=== PATIENT | male | born 1950 | race Caucasian/White ===

== ENCOUNTER 2017-05-27 11:04 | Emergency (ER) | payer BC ==
[2017-05-27] MEDS ORDERED: KETOROLAC 60 MG/2 ML VIAL IM STA (11:47)
--- NOTE | 2017-05-27 11:52 | ED ---
Back Pain HPI - General Chief Complaint: Back Pain/Injury Stated Complaint: Knee Pain Time Seen by Provider: 05/27/17 11:30 Source: patient, EMS, RN notes reviewed Limitations: no limitations - History of Present Illness Initial Comments: This is a 66-year-old male who states about 2 weeks ago his dog ran between his legs and caused him to slip he fell on a wooden swing which broke up. She's been having some low back and mid back pain since that time but he states now has some numbness to his feet and pain radiating down his legs especially on the left. He denies any overt urinary or fecal incontinence any overt loss of function to his upper or lower extremities. He states he does have left knee problems and was advised that he may need a knee replacement. He voices no other complaints at this time. He does state the pain is about 8/10 in severity. Sharp in nature MD Complaint: back pain, fall - Related Data Home Medications Medication Instructions Recorded Confirmed Levothyroxine Sodium [Synthroid] 75 mcg PO DAILY 09/29/13 05/27/17 Pravastatin Sodium [Pravachol] 40 mg PO DAILY 09/29/13 05/27/17 Allopurinol [Zyloprim] 300 mg PO DAILY 10/04/13 05/27/17 Furosemide [Lasix] 40 mg PO DAILY 05/27/17 05/27/17 Losartan/Hydrochlorothiazide 1 tab PO DAILY 05/27/17 05/27/17 [Losartan-Hctz 100-25 mg Tab] Metoprolol Succinate (ER) [Toprol 50 mg PO DAILY 05/27/17 05/27/17 Xl] amLODIPine [Norvasc] 10 mg PO DAILY 05/27/17 05/27/17 Previous Rx's Medication Instructions Recorded Cyclobenzaprine [Flexeril] 10 mg PO TID #14 tab 05/27/17 Ibuprofen 800 mg PO Q6HR PRN #20 tablet 05/27/17 Allergies Allergy/AdvReac Type Severity Reaction Status Date / Time No Known Allergies Allergy Verified 10/04/13 16:21 Review of Systems ROS Statement: Those systems with pertinent positive or pertinent negative responses have been documented in the HPI. ROS Other: All systems not noted in ROS Statement are negative. Past Medical History Past Medical History: Diabetes Mellitus, Hyperlipidemia, Hypertension, Thyroid Disorder Additional Past Medical History / Comment(s): gout History of Any Multi-Drug Resistant Organisms: None Reported Past Surgical History: No Surgical Hx Reported Additional Past Surgical History / Comment(s): REMOVAL MEGAN CATARACTS Past Anesthesia/Blood Transfusion Reactions: No Reported Reaction Past Psychological History: No Psychological Hx Reported Smoking Status: Never smoker Past Alcohol Use History: Occasional Past Drug Use History: None Reported General Exam - General Exam Comments Initial Comments: This is a well-developed well-nourished awake alert oriented times 3 male Limitations: no limitations General appearance: alert Head exam: Present: atraumatic, normocephalic, normal inspection Eye exam: Present: normal appearance, PERRL, EOMI. Absent: scleral icterus, conjunctival injection, periorbital swelling ENT exam: Present: normal exam, mucous membranes moist Neck exam: Present: normal inspection. Absent: tenderness, meningismus, lymphadenopathy Respiratory exam: Present: normal lung sounds bilaterally. Absent: respiratory distress, wheezes, rales, rhonchi, stridor Cardiovascular Exam: Present: regular rate, normal rhythm, normal heart sounds. Absent: systolic murmur, diastolic murmur, rubs, gallop, clicks GI/Abdominal exam: Present: soft, normal bowel sounds, other (Obese abdomen). Absent: distended, tenderness, guarding, rebound, rigid Rectal exam: Present: deferred Extremities exam: Present: normal inspection, full ROM, normal capillary refill , other (Very mild decreased sensation to touch bilaterally). Absent: tenderness, pedal edema, joint swelling, calf tenderness Back exam: Present: normal inspection, tenderness, paraspinal tenderness, vertebral tenderness. Absent: full ROM, CVA tenderness (R), CVA tenderness (L) , rash noted (Tennis palpation of the mid to lower thoracic paraspinous muscles and spinous processes as well as over the mid to lower lumbar spinous processes and paraspinous muscles. No definite step-off or crepitation. Tenderness palpation over the gluteal muscles is minimal.) Neurological exam: Present: alert, oriented X3, CN II-XII intact, reflexes normal Psychiatric exam: Present: normal affect, normal mood Skin exam: Present: warm, dry, intact, normal color. Absent: rash Course Vital Signs 05/27/17 11:06 Temperature 98 F Pulse Rate 74 Respiratory 16 Rate Blood Pressure 167/83 O2 Sat by Pulse 99 Oximetry Medical Decision Making - Medical Decision Making I did discuss findings with the patient and family members were present. Patient be discharged placed on anti-inflammatories he is referred to orthopedics for evaluation of his back he is return when necessary - Radiology Data Radiology results: report reviewed (CT was reviewed and results reviewed. Thoracic spine reveals degenerative disc disease and spondylosis. No compression fracture noted no central stenosis. Lumbar spine CT no evidence of fracture left paracentral disc herniation at L4 and 5 resulting in central stenosis and left lateral recess stenosis. Also difficulty with borderline to mild central stenosis at L3 4.), image reviewed Disposition Clinical Impression: Mechanical back pain, Thoracic back pain, Degeneration of intervertebral disc, Lumbar radiculopathy Disposition: HOME SELF-CARE Condition: Good Instructions: Acute Low Back Pain (ED), Degenerative Disc Disease (ED) Prescriptions: Cyclobenzaprine [Flexeril] 10 mg PO TID #14 tab Ibuprofen 800 mg PO Q6HR PRN #20 tablet PRN Reason: Pain Referrals: Mikal Box MD [Primary Care Provider] - 1-2 days Cris Donnelly DO [Doctor of Osteopathic Medicine] - 1-2 days
--- NOTE | 2017-05-27 12:46 | CT ---
EXAMINATION TYPE: CT lumbar spine wo con DATE OF EXAM: 05/27/2017 COMPARISON: NONE HISTORY: Patient fell through wooden and landed on bottom, [address] DLP: 1943.[address] of the lumbar spine was performed. Bone and soft tissue window settings are submitted as well as coronal and sagittal reconstructions. Spinal canal is congenitally diminutive in size. L1-L2: Normal disc space height. No disc herniation protrusion or central stenosis. No facet joint arthropathy. No evidence for foraminal encroachment. L2-L3: Normal disc space height. No disc herniation protrusion or central stenosis. No facet joint arthropathy. No evidence for foraminal encroachment. L3-L4: Mild degenerative disc space narrowing. Circumferential disc bulge effaces the ventral thecal sac. Mild central stenosis suggested. L4-L5: Left paracentral disc herniation resulting in left lateral recess stenosis and central stenosi s. Left foraminal encroachment identified. L5-S1: Normal disc space height. No disc herniation protrusion or central stenosis. No facet joint arthropathy. No evidence for foraminal encroachment. No paraspinal masses are identified. Lumbar segments are free if fracture. Atrophic changes left kid linda. IMPRESSION: 1. No evidence for fracture. 2. Left paracentral disc herniation at L4-5 resulting in central stenosis and left lateral recess milly nosis. 3. Disc bulging with borderline to mild central stenosis at L3-4.
--- NOTE | 2017-05-27 12:49 | CT ---
EXAMINATION TYPE: CT thoracic spine wo con DATE OF EXAM: 05/27/2017 COMPARISON: NONE HISTORY: Patient fell through wooden and landed on bottom, [address] DLP: 1353.6 mGycm Automated exposure control for dose reduction was used. The unenhanced CT of the thoracic spine was performed with bone and soft tissue window settings submi tted. There is no evidence for thoracic spine compression fracture. There is evidence of ventral spondylosi s throughout. Moderate degenerative disc space narrowing is noted throughout without evidence for andres tral stenosis or disc herniation. No bony destructive process is seen. No paraspinal masses evident. Incidentally there is evidence of cardiomegaly and coronary artery calcifications. IMPRESSION: DEGENERATIVE DISC DISEASE AND SPONDYLOSIS. NO COMPRESSION FRACTURE OF THE THORACIC SPINE OR CENTRAL S TENOSIS.
--- NOTE | 2017-05-27 12:51 | CT ---
EXAMINATION TYPE: CT pelvis wo con DATE OF EXAM: 05/27/2017 COMPARISON: NONE HISTORY: Patient fell through wooden and landed on bottom, [address] DLP: 1226.9 mGycm Automated exposure control for dose reduction was used. Unenhanced CT of the pelvis was performed wit h bone and soft tissue window settings submitted. FINDINGS: No evidence for fracture or dislocation. Mild degenerative hip narrowing. No evidence for soft tissu e mass. Small fat-containing right inguinal hernia. No unusual collections or masses. IMPRESSION: NO PELVIC FRACTURES SEEN.
[2017-05-28 23:01] VITALS: BP 165/80; PULSE 72; RESP 16; TEMP 98
== END 2017-05-27 13:24 | disposition home or self-care (01) ==
LOC: EC 11:04
DX: M51.34 Other intervertebral disc degeneration, thoracic region (principal); M47.814 Spondylosis without myelopathy or radiculopathy, thoracic region; M51.16 Intervertebral disc disorders with radiculopathy, lumbar region; M48.061 Spinal stenosis, lumbar region without neurogenic claudication; E78.5 Hyperlipidemia, unspecified; I10 Essential (primary) hypertension; M10.9 Gout, unspecified; E07.9 Disorder of thyroid, unspecified; Z79.899 Other long term (current) drug therapy
CPT/HCPCS: 72192; 72128; 72131; 99284; 96372; J1885

== ENCOUNTER 2017-11-02 11:40 | Emergency (ER) | payer BC ==
[2017-11-02] MEDS ORDERED: DIPH,PERTUS(ACELL)TETVAC-LF 0.5 ML VIAL IM ONE (12:43)
[2017-11-02] MEDS ORDERED: hydrALAZINE HCL 20 MG/ML 1 ML VIAL IM STA (13:13)
[2017-11-02] MEDS ORDERED: METOPROLOL TARTRATE 50 MG TAB PO STA (13:13)
[2017-11-02] MEDS ORDERED: HYDROcodone/APAP 10-325MG 1 EACH TAB PO ONE (13:13)
--- NOTE | 2017-11-02 13:23 | CT ---
EXAMINATION TYPE: CT brain cspine wo con DATE OF EXAM: 11/02/2017 COMPARISON: NONE HISTORY: Fall 1 week ago. Facial and frontal bruising CT DLP: 1831.4 mGycm Automated exposure control for dose reduction was used. TECHNIQUE: CT scan of the head and cervical spine are performed without contrast. FINDINGS: Nasal septal deviation noted. Soft tissue hematoma overlying the frontal bone mild genera lized degenerative change. Faint low-attenuation within the white matter is nonspecific but suggestiv e of remote microvascular. Calvarium intact.. There is a 1 cm soft tissue protuberance extending off the posterior nasopharynx. Recommend ENT consu ltation. Mass not excluded. Multilevel degenerative disc disease and facet arthropathy with posterior spondylosis. There is multi level foraminal encroachment extending from level C3-T1. No compression deformities. Suspect canal st enosis at C5-C6 and C4-C5. Could not exclude disc herniations due to the limitations exam. Central st enosis at C6-C7 also suspected atherosclerotic change of the carotid systems is noted. Tip of odontoi d demonstrate a corticated density which appears chronic. May be related to previous trauma or post a rthropathy. IMPRESSION: 1. There is no acute fracture or dislocation evident in the cervical spine. 2. No acute intracranial hemorrhage, mass effect, or midline shift is seen. There is evidence of a anderson bcutaneous soft tissue hematoma overlying the frontal bone. 3. Multilevel degenerative disc disease with suspected multilevel canal stenosis. Recommend follow-up MRI. 4. Within the posterior nasopharynx there is a soft tissue nodule measuring 1 cm correlate for mucosa l lesion.
--- NOTE | 2017-11-02 13:36 | XR ---
EXAMINATION TYPE: XR shoulder complete LT DATE OF EXAM: 11/02/2017 COMPARISON: NONE HISTORY: Pain TECHNIQUE: Three views are submitted. FINDINGS: The osseous structures are intact. There is no acute fracture or dislocation. Arthropathy of the AC joint. IMPRESSION: 1. No acute process.
[2017-11-02 14:00] VITALS: RESP 18
[2017-11-02] MEDS ORDERED: amLODIPine 10 MG TAB PO STA (14:08)
--- NOTE | 2017-11-02 15:30 | ED ---
Fall HPI - General Chief Complaint: Fall Stated Complaint: Fall Time Seen by Provider: 11/02/17 12:21 Source: patient Mode of arrival: wheelchair - History of Present Illness Initial Comments: 67 years old male fell 6 days ago he bumped his head against a hard surface no complaining about 10 headache and neck pain he is complaining about numbness in his both arms, his strength in his both arms is fine also complaining about the left shoulder pain and range of motion is compromised and now he stated that he is having a hard time raising the left arm above his head. Denies any neck stiffness no chest pain or shortness of breath no abdominal pain no symptoms of TIA or CVA - Related Data Home Medications Medication Instructions Recorded Confirmed Levothyroxine Sodium [Synthroid] 75 mcg PO DAILY 09/29/13 11/02/17 Pravastatin Sodium [Pravachol] 40 mg PO DAILY 09/29/13 11/02/17 Allopurinol [Zyloprim] 300 mg PO DAILY 10/04/13 11/02/17 Aspirin 81 mg PO DAILY 05/27/17 11/02/17 Furosemide [Lasix] 40 mg PO DAILY 05/27/17 11/02/17 Losartan/Hydrochlorothiazide 1 tab PO DAILY 05/27/17 11/02/17 [Losartan-Hctz 100-25 mg Tab] Metoprolol Succinate (ER) [Toprol 50 mg PO DAILY 05/27/17 11/02/17 Xl] amLODIPine [Norvasc] 10 mg PO DAILY 05/27/17 11/02/17 Ibuprofen 800 mg PO TID PRN 11/02/17 11/02/17 Potassium Chloride [Klor-Con 20] 20 meq PO DAILY 11/02/17 11/02/17 Previous Rx's Medication Instructions Recorded Gabapentin [Neurontin] 100 mg PO DAILY #30 capsule 11/02/17 Allergies Allergy/AdvReac Type Severity Reaction Status Date / Time No Known Allergies Allergy Verified 11/02/17 12:10 Review of Systems ROS Statement: Those systems with pertinent positive or pertinent negative responses have been documented in the HPI. ROS Other: All systems not noted in ROS Statement are negative. Past Medical History Past Medical History: Diabetes Mellitus, Hyperlipidemia, Hypertension, Thyroid Disorder Additional Past Medical History / Comment(s): gout History of Any Multi-Drug Resistant Organisms: None Reported Past Surgical History: No Surgical Hx Reported Additional Past Surgical History / Comment(s): REMOVAL MEGAN CATARACTS Past Anesthesia/Blood Transfusion Reactions: No Reported Reaction Past Psychological History: No Psychological Hx Reported Past Alcohol Use History: None Reported General Exam Limitations: no limitations Course Vital Signs 11/02/17 11/02/17 11/02/17 11:44 12:54 13:59 Temperature 98.3 F Pulse Rate 79 77 Respiratory 22 18 Rate Blood Pressure 181/102 195/91 Blood Pressure 204/99 [Left Arm Sitting] Blood Pressure 203/112 [Left Arm Standing] Blood Pressure 207/95 [Left Arm Supine] O2 Sat by Pulse 97 100 Oximetry 11/02/17 14:31 Temperature Pulse Rate 69 Respiratory 18 Rate Blood Pressure 180/86 Blood Pressure [Left Arm Sitting] Blood Pressure [Left Arm Standing] Blood Pressure [Left Arm Supine] O2 Sat by Pulse 99 Oximetry Critical Care Time Total Critical Care Time: 30 Critical Care Time: Patient came in is that pressure was it was 70 systolic he hasn't had his blood pressure medications for last 2-3 days we gave him on Norvasc 10 mg which is his home medication we also had a beta blockers 50 mg by mouth and then gave him a hydralazine 20 mg intramuscular and we watched him for about an hour his blood pressure is 170 systolic now. He is advised to follow-up with his family doctor about blood pressure is advised to keep a log for blood pressure once a day for the next 10 days he agrees with the period as far as numbness in his both hands concern I believe this is from spinal stenosis of the cervical spine I am going to start him on a gabapentin 100 mg by mouth daily at bedtime which should be increased by the primary care doctor over the weeks to maybe 300 mg 3 times a day Disposition Clinical Impression: Head injury, Radiculopathy Disposition: HOME SELF-CARE Condition: Good Instructions: Fall Prevention for Older Adults (ED) Prescriptions: Gabapentin [Neurontin] 100 mg PO DAILY #30 capsule Is patient prescribed a controlled substance at d/c from ED?: No Referrals: Mikal Box MD [Primary Care Provider] - 1-2 days
[2017-11-02 15:58] VITALS: BP 187/91; PULSE 62; TEMP 98.6
== END 2017-11-02 15:58 | disposition home or self-care (01) ==
LOC: EC 11:40
DX: S09.90XA Unspecified injury of head, initial encounter (principal); M54.10 Radiculopathy, site unspecified; I10 Essential (primary) hypertension; E78.5 Hyperlipidemia, unspecified; E07.9 Disorder of thyroid, unspecified; M10.9 Gout, unspecified; Z79.82 Long term (current) use of aspirin; Z79.899 Other long term (current) drug therapy; Z23 Encounter for immunization; W22.8XXA Striking against or struck by other objects, initial encounter; Y92.009 Unspecified place in unspecified non-institutional (private) residence as the place of occurrence of the external cause
CPT/HCPCS: 99284; 96372; 90471; 73030; 72125; 70450; 90715; J0360

== ENCOUNTER → 2017-12-02 | Outpatient (CLI) | payer MEDICARE, BC | END | disposition home or self-care (01) | LOC: RADMRIMAIN 12:35 | PROVIDERS: ATTEND Physical Medicine & Rehabilitation | DX: Z53.9 Procedure and treatment not carried out, unspecified reason (principal) ==

== ENCOUNTER 2018-08-24 15:13 | Inpatient (IN) | payer BC, MEDICARE ==
[2018-08-24] MEDS ORDERED: HYDROcodone/APAP 7.5-325MG 1 EACH TAB PO ONE (15:31)
--- NOTE | 2018-08-24 16:10 | XR ---
Right foot, right ankle, right knee HISTORY: Pain and swelling, trauma and pain 3 views of the right foot, 3 views of the right ankle, 3 views of the right knee submitted. There is a fracture dislocation at the ankle, bayonet apposition present at the distal fibular fractu re which is displaced laterally. Ankle is dislocated laterally approximately 2.4 cm. Small ossific fr agments are present laterally compatible with comminution. Plantar calcaneal spur noted incidentally. There is soft tissue swelling. Enthesophyte present at the insertion of the Achilles tendon. Degenerative changes are present at the first metatarsal nodule laurita int. Degenerative changes are present at the intertarsal joints. Knee joint shows normal alignment an d bone mineralization. There is marginal spurring in the medial compartment with joint space loss com patible with osteoarthritic change. IMPRESSION: Ankle fracture dislocation as described.
--- NOTE | 2018-08-24 16:38 | ED ---
Lower Extremity Injury HPI - General Chief Complaint: Extremity Injury, Lower Stated Complaint: Ankle pain/fall Time Seen by Provider: 08/24/18 15:22 Source: patient, EMS Mode of arrival: EMS Limitations: no limitations - History of Present Illness Initial Comments: The 67-year-old male with past medical history of hypertension, gout and chronic back pain presenting today for chief complaint of right ankle pain and inability to weight-bear. Patient states on Friday of last week he fell twisting his ankle inward. He states he thought he had a sprain, he states immediately after he had pain with weightbearing, he states that the days progressed it improved, he states he was using his walker which uses for chronic back pain at times, then he began using a cane, he states for the past 2 days has been ambulatory without difficulty only mild discomfort. However today when he went to let the dog out he noticed a pop in his right ankle and felt as though gave out, he states he was not able to weight-bear secondary to the pain. Patient denies f all that time. He states he sat down, EMS was called due to inability to weight-bear and he is brought to the emergency department for evaluation. Patient states the ankle has been bruised for the past week has had soft tissue swelling. Denies any numbness tingling or loss sensation coolness or pallor of the extremity. Patient states he had mild pain at the knee this began last Friday however has been improving over the course of the week. Remaining review of systems negative patient denies head injury loss of consciousness, abdominal trauma, back pain, fever, chills, shortness of breath, chest pain, abdominal pain, nausea or vomiting, numbness or tingling, dysuria or hematuria, constipation or diarrhea, headaches or visual changes, or any other complaints. - Related Data Home Medications Medication Instructions Recorded Confirmed Levothyroxine Sodium [Synthroid] 75 mcg PO DAILY 09/29/13 08/24/18 Pravastatin Sodium [Pravachol] 40 mg PO DAILY 09/29/13 08/24/18 Allopurinol [Zyloprim] 300 mg PO DAILY 10/04/13 08/24/18 Losartan/Hydrochlorothiazide 1 tab PO DAILY 05/27/17 08/24/18 [Losartan-Hctz 100-25 mg Tab] Metoprolol Succinate (ER) [Toprol 50 mg PO DAILY 05/27/17 08/24/18 Xl] amLODIPine [Norvasc] 10 mg PO DAILY 05/27/17 08/24/18 amLODIPine [Norvasc] 5 mg PO DAILY 08/24/18 08/24/18 Allergies Allergy/AdvReac Type Severity Reaction Status Date / Time No Known Allergies Allergy Verified 08/24/18 15:39 Review of Systems ROS Statement: Those systems with pertinent positive or pertinent negative responses have been documented in the HPI. ROS Other: All systems not noted in ROS Statement are negative. Past Medical History Past Medical History: Diabetes Mellitus, Hyperlipidemia, Hypertension, Thyroid Disorder Additional Past Medical History / Comment(s): gout, back problems History of Any Multi-Drug Resistant Organisms: None Reported Past Surgical History: No Surgical Hx Reported Additional Past Surgical History / Comment(s): REMOVAL MEGAN CATARACTS Past Anesthesia/Blood Transfusion Reactions: No Reported Reaction Past Psychological History: No Psychological Hx Reported Smoking Status: Current some day smoker Past Alcohol Use History: None Reported Past Drug Use History: None Reported General Exam - General Exam Comments Initial Comments: General: The patient is awake and alert, in no distress, and does not appear acutely ill. Morbidly obese Eye: +3 mm pupils are equal, round and reactive to light, extra-ocular movements are intact. No nystagmus. There is normal conjunctiva bilaterally. No signs of icterus. Ears, nose, mouth and throat: There are moist mucous membranes and no oral lesions. No raccoon or Duggan sign. Neck: The neck is supple, there is no tenderness or JVD. Cardiovascular: There is a regular rate and rhythm. No murmur, rub or gallop is appreciated. Respiratory: Lungs are clear to auscultation, respirations are non-labored, breath sounds are equal. No wheezes, stridor, rales, or rhonchi. Gastrointestinal: Soft, non-distended, non-tender abdomen without masses or organomegaly noted. There is no rebound or guarding present. No CVA tenderness. Bowel sounds are unremarkable. Musculoskeletal: Upon inspection of the right ankle there is gross deformity. There is ecchymosis noted and soft tissue swelling this appears moderate in comparison with the left ankle. Patient is unable to range secondary to pain and gross deformity. Patient denies any loss of sensation distal or proximal to injury site. Patient has mild tenderness to patient of the right anterior knee. Normal ROM, no tenderness of the left LE. Strength 5/5 at knees b/l, extensor mechanism intact. Sensation intact of the of the LE b/l inclding proximal and distal to affected extremity . DP pulses equal bilaterally strong 2+. Neurological: A&O x 3. CN II-XII intact, There are no obvious motor or sensory deficits. Coordination appears grossly intact. Speech is normal. Skin: Skin is warm and dry and no rashes or lesions are noted. Psychiatric: Cooperative, appropriate mood & affect, normal judgment. Limitations: no limitations Course Vital Signs 08/24/18 08/24/18 08/24/18 15:15 17:07 17:11 Temperature 97.4 F L Pulse Rate 76 78 67 Respiratory 18 20 20 Rate Blood Pressure 189/97 191/106 172/71 O2 Sat by Pulse 99 100 100 Oximetry 08/24/18 08/24/18 08/24/18 17:16 17:21 20:09 Temperature Pulse Rate 68 69 73 Respiratory 20 20 18 Rate Blood Pressure 135/69 146/90 180/91 O2 Sat by Pulse 100 100 98 Oximetry - Reevaluation(s) Reevaluation #1: Spoke with Physician Physical Ther Ken Ramirez about case, she reviewed imaging studies, we discussed history. She spoke with attending Dr Lobo who recommend reduction/splint. He is agreeable with admission for subacute placement until surgical intervention. 08/24/18 16:40 Reevaluation #2: Pt states he can not pee in urinal, or weight bear in right or left leg. Requesting catherization to prevent incontinence. Mendes placed. Medical Decision Making - Medical Decision Making 67-year-old male presented for right ankle deformity and inability to weight- bear. Patient fell last week twisting right ankle. Patient states today after being able to weight-bear for the past week he noted a loud pop, pain in the right ankle and inability to weight-bear. At this time patient called EMS. X-rays revealed a fibula fracture 100% displaced medially with dislocation of the ankle mortise. No obvious osseous injury of the medial malleolus or posteriorly. Patient neurovascularly intact. Conscious sedation was performed by Dr. Carroll attending provider. He reviewed imaging studies. Patient t olerated procedure well, procedures performed using propofol after written consent. Repeat neurovascular exam after reduction and splint placement was within normal limits. Ortho consulted who reviewed imaging studies, recommend reduction/splint. Pt states he has significant left arthritis and with the right ankle fracture and would not be able to ambulate. At this time Dr. Medina accepted admission for social work consult/rehab placement until operative measures performed. 1st set post reduction films revealed reduction, second set after splint was in place, revealed dislocation and displacement. Pt NV intact, repeat reduction performed. Dr. Medina was paged for the second time, he came to patient bedside and reduced ankle and placed in bulky doran. Pt NV intact after splinting transferred to floor in stable condition. Dr. Rosado presented at bedside for medical clearance. - Lab Data Result diagrams: 08/24/18 19:50 08/24/18 19:50 - EKG Data EKG Comments: Ventricular rate 70 bpm, IA interval 170 Sy, to administration needs six- month second, QT/QTc 528/570 no seconds. Sinus rhythm with occasional PVC. Nonspecific T-wave. No ST elevation or depression. Disposition Clinical Impression: Inability to bear weight, Right fibular fracture, Dislocation of ankle, right, closed, History of fall Disposition: ADMITTED IP TO THIS HOSP Condition: Stable Is patient prescribed a controlled substance at d/c from ED?: No Time of Disposition: 17:33 Decision to Admit Reason: Admit from EC Decision Date: 08/24/18 Decision Time: 17:33
[2018-08-24] MEDS ORDERED: PROPOFOL 10 MG/ML 20 ML VIAL IV ONE (16:42)
[2018-08-24] MEDS ORDERED: NALOXONE 0.4 MG/ML 1 ML VIAL IV PRN (17:33)
--- NOTE | 2018-08-24 17:43 | XR ---
EXAMINATION TYPE: XR ankle limited RT DATE OF EXAM: 08/24/2018 CLINICAL HISTORY: Right ankle fracture. TECHNIQUE: Single frontal view of the right ankle is obtained. COMPARISON: Right ankle x-ray earlier today. FINDINGS: There is interval improvement in alignment after reduction with slight lateral tilting of the ankle mortise and medial space widening. There is interval improvement in comminuted fracture thr ough the lateral malleolus is still slight lateral step-off measured 6 to 7 mm. Moderate diffuse subc utaneous edema soft tissue swelling medially and laterally remains present. IMPRESSION: There is improved alignment on frontal view after reduction.
[2018-08-24] MEDS ORDERED: SODIUM CHLORIDE 0.9% 1,000 ML IV SCH (17:45)
--- NOTE | 2018-08-24 18:32 | XR ---
EXAMINATION TYPE: XR ankle limited RT DATE OF EXAM: 08/24/2018 CLINICAL HISTORY: Post reduction and splinting. TECHNIQUE: Frontal and lateral images of the right ankle are obtained. COMPARISON: Right ankle x-rays earlier today.. FINDINGS: There is interval placement of splint cast material which is noted low radiographic sensit ivity. Comminuted displaced fracture through lateral malleolus shows increased lateral displacement a nd angulation. Posterior displacement is noted on lateral view. There is new lateral tilting and subl uxation of talus relative to distal tibia. IMPRESSION: There is worsening alignment after casting.
[2018-08-24] MEDS ORDERED: MORPHINE SULFATE 2 MG/ML SYRINGE IVP STA (19:04)
[2018-08-24] MEDS ORDERED: hydrALAZINE HCL 20 MG/ML 1 ML VIAL IVP PRN (19:45)
[2018-08-24] MEDS ORDERED: TEMAZEPAM 15 MG CAP PO PRN (19:46)
[2018-08-24] MEDS ORDERED: ACETAMINOPHEN TAB 500 MG TAB PO PRN (19:46)
[2018-08-24] MEDS ORDERED: ALPRAZolam 0.25 MG TAB PO PRN (19:46)
[2018-08-24 20:06] LABS: Basophils # (A) 0.1 k/uL (0-0.2); Basophils % (A) 1 %; Eosinophils # (A) 0.4 k/uL (0-0.7); Eosinophils % (A) 3 %; HCT 40.4 % (39.0-53.0); Lymphocytes # (A) 1.4 k/uL (1.0-4.8); Lymphocytes % (A) 11 %; MCH 32.9 pg (25.0-35.0); MCHC 34.6 g/dL (31.0-37.0); Mean Platelet Volume 6.8; Monocytes # (A) 0.8 k/uL (0-1.0); Monocytes % (A) 6 %; Neutrophils # (A) 9.9 k/uL (1.3-7.7); Neutrophils % (A) 78 %; Platelet Count 236 k/uL (150-450); RBC 4.25 m/uL (4.30-5.90); RDW 14.3 % (11.5-15.5); WBC 12.7 k/uL (3.8-10.6)
[2018-08-24] MEDS: SODIUM CHLORIDE 0.9% 1,000 ML IV SCH (20:08)
[2018-08-24 20:12] LABS: Albumin 3.8 g/dL (3.5-5.0); Calcium 9.5 mg/dL (8.4-10.2); Potassium 3.3 mmol/L (3.5-5.1); Total Bilirubin 1.6 mg/dL (0.2-1.3); Total Protein 6.5 g/dL (6.3-8.2)
[2018-08-24] MEDS ORDERED: LIDOCAINE 2% INJ 20 MG/ML (20 ML MDV) SQ STA (20:14)
[2018-08-24] MEDS ORDERED: POTASSIUM CHLORIDE ER 20 MEQ TAB.ER PO STA (20:37)
[2018-08-24] MEDS ORDERED: LORazepam 2 MG/ML INJ IV PRN ×3 (20:45)
[2018-08-24] MEDS ORDERED: THIAMINE 100 MG/ML 2 ML VIAL IM STA (20:45)
--- NOTE | 2018-08-24 20:53 | XR ---
EXAMINATION TYPE: XR chest 1V portable DATE OF EXAM: 08/24/2018 CLINICAL HISTORY: Difficulty breathing and CHF. TECHNIQUE: Single AP portable upright view of the chest is obtained. COMPARISON: None. FINDINGS: Exam suboptimal due to portable technique and patient's large body habitus. Cardiomegaly i s present with atelectatic thoracic aorta. There is no suspicious focal airspace opacity, pleural eff usion, or pneumothorax seen bilaterally. Osseous structures are intact. IMPRESSION: Cardiomegaly without acute pulmonary process.
[2018-08-24] MEDS: HEPARIN SODIUM,PORCINE 5,000 UNIT/ML 1 ML VIAL SQ SCH (21:33)
--- NOTE | 2018-08-24 22:25 | P.HPOR ---
History of Present Illness H&P Date: 08/24/18 The patient is a very pleasant 67-year-old male who lives alone and presents with a right ankle fracture-dislocation. He fell last Friday injuring his ankle. It was painful at that time, but he didn't seek medical attention. He was initially able to walk, but then had increased pain and he started crawling on his hands and knees developing sores on his feet. He re-injured his ankle today and felt a "pop" and had increased pain. He was brought into the ER. An attempt was made at closed reduction and splinting, but following application of the splint the ankle was still found to be significantly displaced. Orthopaedics was consulted to assist with reduction. At the time of evaluation he is complaining of isolated ankle pain. He says he has chronic swelling in both ankles. Past Medical History Past Medical History: Diabetes Mellitus, Hyperlipidemia, Hypertension, Thyroid Disorder Additional Past Medical History / Comment(s): gout, back problems History of Any Multi-Drug Resistant Organisms: None Reported Past Surgical History: No Surgical Hx Reported Additional Past Surgical History / Comment(s): REMOVAL MEGAN CATARACTS Past Anesthesia/Blood Transfusion Reactions: No Reported Reaction Past Psychological History: No Psychological Hx Reported Smoking Status: Current some day smoker Past Alcohol Use History: None Reported Additional Past Alcohol Use History / Comment(s): 1-2 PINTS PER WEEK AVG EST, APPROX 14 DRINKS PER WK STATED ALSO Past Drug Use History: None Reported Additional Drug Use History / Comment(s): OLD HX OF RECREATIONAL DRUG USE REPORTED, PRIOR TO 1983; NONE NOW - Past Family History Mother Family Medical History: Coronary Artery Disease (CAD), Diabetes Mellitus, Hypertension, Rheumatoid Arthritis (RA) Father Family Medical History: Congestive Heart Failure (CHF) Medications and Allergies Home Medications Medication Instructions Recorded Confirmed Type Levothyroxine Sodium [Synthroid] 75 mcg PO DAILY 09/29/13 08/24/18 History Pravastatin Sodium [Pravachol] 40 mg PO DAILY 09/29/13 08/24/18 History Allopurinol [Zyloprim] 300 mg PO DAILY 10/04/13 08/24/18 History Losartan/Hydrochlorothiazide 1 tab PO DAILY 05/27/17 08/24/18 History [Losartan-Hctz 100-25 mg Tab] Metoprolol Succinate (ER) [Toprol 50 mg PO DAILY 05/27/17 08/24/18 History Xl] amLODIPine [Norvasc] 10 mg PO DAILY 05/27/17 08/24/18 History amLODIPine [Norvasc] 5 mg PO DAILY 08/24/18 08/24/18 History Allergies Allergy/AdvReac Type Severity Reaction Status Date / Time No Known Allergies Allergy Verified 08/24/18 15:39 Physical Examination The patient is alert and able to answer questions. He is obese. His head is NC/AT. He has poor dentition with multiple visual plaques. He demonstrates non- labored breathing with symmetric chest expansion. On inspection of both legs there is diffuse swelling and chronic lichenfication of the skin. There is an ob vious deformity of the right ankle, but no open wounds. Motor and sensory function is intact. The dorsalis pedis pulse is palpable on the right foot. Results X-rays of the right ankle show a bimalleolar equivalent ankle fracture- dislocation. - Labs Labs: Abnormal Lab Results - Last 24 Hours (Table) 08/24/18 08/24/18 Range/Units 19:50 19:50 WBC 12.7 H (3.8-10.6) k/uL RBC 4.25 L (4.30-5.90) m/uL Neutrophils # 9.9 H (1.3-7.7) k/uL Potassium 3.3 L (3.5-5.1) mmol/L BUN 28 H (9-20) mg/dL Glucose 105 H (74-99) mg/dL Total Bilirubin 1.6 H (0.2-1.3) mg/dL H & H 08/24/18 Range/Units 19:50 Hgb 14.0 (13.0-17.5) gm/dL Hct 40.4 (39.0-53.0) % Result Diagrams: 08/24/18 19:50 08/24/18 19:50 Assessment and Plan (1) Dislocation of ankle, right, closed Current Visit: Yes Status: Acute Code(s): S93.04XA - DISLOCATION OF RIGHT ANKLE JOINT, INITIAL ENCOUNTER SNOMED Code(s): 639149739 (2) Right fibular fracture Current Visit: Yes Status: Acute Code(s): S82.401A - UNSP FRACTURE OF SHAFT OF RIGHT FIBULA, INIT FOR CLOS FX SNOMED Code(s): 27451428 Plan: Since the patient lives alone and will likely have a difficult time taking care of himself due to his fracture, weight bearing restriction and social situation he is going to be admitted for likely placement in a rehab facility or penitentiary. His fracture will ultimately require surgical stabilization. We will re- assess his soft tissue swelling tomorrow morning. If his soft-tissue envelope appears amenable we will proceed with an ORIF. If there is too much swelling we will delay surgery for 1-2 weeks to allow resolution of soft tissue swelling. Internal medicine has been consulted for pre-operative clearance. Procedure: Verbal consent was obtained for closed reduction and splinting of the ankle. A hematoma/ankle block was performed using 2% lidocaine. The medial portal was used to inject the lidocaine. The ankle was reduced with the Nakia maneuver. A well-padded bulky Mcgill splint was applied with varus mold. The patient tolerated the procedure well. Time with Patient: Greater than 30
--- NOTE | 2018-08-24 22:33 | CONS ---
CONSULTATION DATE OF SERVICE: 08/24/2018. REASON FOR CONSULTATION: Advice regarding sleep apnea and gout, diabetes mellitus, requested by Dr. Medina. HISTORY OF PRESENT ILLNESS: This 67-year-old gentleman with a past medical history hypertension, diabetes, hyperlipidemia, history of hypothyroidism, has got back problems, DJD being followed by primary physician in the outpatient setting, apparently complaining of right ankle pain. The patient apparently fell and had twisting of the left ankle inwards. The patient was found to have ankle fracture and a cast was applied by Dr. Medina in the ER. The ankle was found to be swollen and Surgery is deferred at this point at this time. There is no history of fever, rigors or chills. No history of headache, loss of consciousness, seizures. Previous excess capacity appears to be adequate at this time. There is no history of chest pain, palpitation, history of myocardial infarction. PAST MEDICAL HISTORY: History of diabetes, hypertension, hyperlipidemia, hypothyroidism, history of gout, back problems, and sleep apnea. MEDICATIONS: Prior to admission include: 1. Norvasc 5 mg p.o. daily. 2. Toprol-XL 50 mg. 3. Norvasc 10 mg p.o. daily. 4. Pravachol 40 mg. 5. Losartan hydrochlorothiazide 1 p.o. daily. 6. Synthroid 75 mcg. 7. Zyloprim 300 mg p.o. daily. ALLERGIES: None. FAMILY HISTORY: No history of heart disease or strokes in the family. SOCIAL HISTORY: Occasional alcohol. History of continued ongoing nicotine dependence. Remote history of recreational drug abuse prior to 1983. REVIEW OF SYSTEMS: ENT: No diminished hearing or diminished vision. CARDIOVASCULAR: No angina. No palpitations. RESPIRATORY: As mentioned earlier. GI no nausea or vomiting. : No dysuria. NERVOUS SYSTEM: No numbness or weakness. ALLERGY/IMMUNOLOGY: No asthma or hayfever. MUSCULOSKELETAL: As mentioned earlier. HEMATOLOGY/ONCOLOGY: No history of anemia. ENDOCRINE: Hypothyroidism. CONSTITUTIONAL: As mentioned early. Dermatology: Negative. Rheumatology: Negative. Psychiatry: As mentioned earlier. PHYSICAL EXAMINATION: Alert and oriented times three. Pulse is 73, blood pressure 188/91, respiration rate 18, temperature is normal. Pulse ox 96% on 15% non-rebreather. HEENT: Conjunctivae normal. Oral mucosa moist. NECK: Neck is obese. No jugular venous distention. No carotid bruit. No lymph node enlargement. CARDIOVASCULAR: S1, S2 muffled. RESPIRATIONS: Breath sounds diminished in the bases. A few scattered rhonchi. No crackles. ABDOMEN: Soft, obese, nontender. No mass palpable. LEGS: Bilateral leg edema and as well as right ankle fracture also present. NERVOUS SYSTEM: Higher functions as mentioned earlier. Moves all 4 limbs. No focal motor deficits. Lymphatics: No lymph nodes palpable in the neck, axillae or groin. Skin: No ulcer, rash, bleeding. JOINTS: No active deforming arthropathy. LAB STUDIES: WBC 12.2, hemoglobin 14, otherwise glucose 105, total bilirubin is 1.6, and the chest x- ray done now showed a portable chest x-ray showed EKG, nonspecific ST-T changes showed no evidence of fluid fluid overload. ASSESSMENT: 1. Status post right ankle fracture. 2. possibly sleep apnea. 3. Super morbid obesity, BMI of 45.6, increased WBC. 4. Hypokalemia, mild. 5. Diabetes mellitus type 2. 6. Hypertension. 7. Hyperlipidemia. 8. Hypothyroidism. 9. Gout. 10.Degenerative joint disease. 11.Back problems. 12.History of nicotine dependence. 13.History of ETOH. RECOMMENDATIONS AND DISCUSSION: In this 67-year-old gentleman who presented with multiple complex medical issues, at this time I recommend to continue current medications, management and symptomatic treatment. Resume the home medications. Monitor blood sugars closely. I would recommend continue with the CPAP at nighttime and continue to monitor. I would also recommend an ABG to rule out possible hypercarbia. Otherwise, the patient also had history of EtOH. Patient apparently drinks about 14 drinks per week or so. Also recommend CIWA protocol and watching for dt precautions. Smoking cessation has been advised. We will follow the patient closely with you and further recommendations to follow. Thank you Dr. Medina for letting us participate in the care of this patient. MMHERBL / EBENN: [id number] / DHEERAJ
[2018-08-25] MEDS: MORPHINE SULFATE 4 MG/ML SYRINGE IV PRN ×2 (03:02→07:20)
[2018-08-25] MEDS: LEVOTHYROXINE 75 MCG TAB PO SCH (05:44)
[2018-08-25] MEDS: METOPROLOL SUCCINATE (ER) 50 MG TAB.ER.24H PO SCH (07:20)
[2018-08-25] MEDS: LOSARTAN-HCTZ 50-12.5 MG 1 EACH TAB PO SCH (07:20)
[2018-08-25] MEDS: amLODIPine 10 MG TAB PO SCH (07:20)
[2018-08-25] MEDS: HEPARIN SODIUM,PORCINE 5,000 UNIT/ML 1 ML VIAL SQ SCH ×2 (08:03→22:27)
[2018-08-25] MEDS: SODIUM CHLORIDE 0.9% 1,000 ML IV SCH ×2 (08:07→22:27)
[2018-08-25 08:15] LABS: Albumin 3.7 g/dL (3.5-5.0); Calcium 8.8 mg/dL (8.4-10.2); Potassium 3.6 mmol/L (3.5-5.1); Total Bilirubin 1.6 mg/dL (0.2-1.3); Total Protein 6.1 g/dL (6.3-8.2)
[2018-08-25 08:44] LABS: Basophils # (A) 0.1 k/uL (0-0.2); Basophils % (A) 1 %; Eosinophils # (A) 0.3 k/uL (0-0.7); Eosinophils % (A) 3 %; HCT 40.1 % (39.0-53.0); HGB 13.5 gm/dL (13.0-17.5); Lymphocytes # (A) 0.9 k/uL (1.0-4.8); Lymphocytes % (A) 10 %; MCH 32.1 pg (25.0-35.0); MCHC 33.6 g/dL (31.0-37.0); MCV 95.4 fL (80.0-100.0); Mean Platelet Volume 7.2; Monocytes # (A) 0.6 k/uL (0-1.0); Monocytes % (A) 7 %; Neutrophils # (A) 7.1 k/uL (1.3-7.7); Neutrophils % (A) 78 %; Platelet Count 249 k/uL (150-450); RDW 14.3 % (11.5-15.5); WBC 9.1 k/uL (3.8-10.6)
[2018-08-25] MEDS: PRAVASTATIN SODIUM 40 MG TAB PO SCH (09:38)
[2018-08-25] MEDS: ALLOPURINOL 300 MG TAB PO SCH (09:38)
[2018-08-25] MEDS: THIAMINE 100 MG TAB PO SCH ×2 (09:38→17:13)
[2018-08-25] MEDS: PANTOPRAZOLE 40 MG TABLET PO SCH (09:38)
[2018-08-25] MEDS ORDERED: LACTATED RINGERS 1,000 ML IV ONE (11:55)
[2018-08-25] MEDS ORDERED: ONDANSETRON 4 MG/2 ML VIAL IVP ONE ×2 (12:11→15:24)
[2018-08-25] MEDS ORDERED: DEXAMETHASONE SOD PHOSPHATE 10 MG/ML 1 ML VIAL IV ONE (12:11)
--- NOTE | 2018-08-25 12:47 | P.PN ---
Subjective Progress Note Date: 08/25/18 The patient was examined in preoperative holding to assess the soft tissue envelope over his right ankle. The bulky Mcgill splint was taken down and on inspection of the skin over the ankle there are some resolution of swelling and mild wrinkling of the skin. There are no open wounds or fracture blisters. The soft tissue envelope appears amenable to proceed with surgery. Objective - Vital Signs Vital signs: Vital Signs Temp 99.0 F 08/25/18 11:54 Pulse 66 08/25/18 11:54 Resp 16 08/25/18 11:54 BP 168/79 08/25/18 11:54 Pulse Ox 94 L 08/25/18 11:54 Intake & Output 08/24/18 08/25/18 08/25/18 18:59 06:59 18:59 Intake Total 600 Output Total 1300 Balance -700 Weight 170.097 kg Intake: Intake, IV Titration 600 Amount Sodium Chloride 0.9% 1, 600 000 ml @ 75 mls/hr IV . [id number] LISA Rx#:[id number] Output: Urine 1300 Uretheral (Mendes) 700 Other: Voiding Method Indwelling Catheter Indwelling Catheter - Labs CBC & Chem 7: 08/25/18 06:57 08/25/18 06:57 Labs: Abnormal Lab Results - Last 24 Hours (Table) 08/24/18 08/24/18 08/25/18 Range/Units 19:50 19:50 06:57 WBC 12.7 H (3.8-10.6) k/uL RBC 4.25 L (4.30-5.90) m/uL Neutrophils # 9.9 H (1.3-7.7) k/uL Lymphocytes # (1.0-4.8) k/uL Potassium 3.3 L (3.5-5.1) mmol/L Chloride 108 H (98-107) mmol/L BUN 28 H 23 H (9-20) mg/dL Glucose 105 H (74-99) mg/dL Total Bilirubin 1.6 H 1.6 H (0.2-1.3) mg/dL Total Protein 6.1 L (6.3-8.2) g/dL 08/25/18 Range/Units 06:57 WBC (3.8-10.6) k/uL RBC 4.20 L (4.30-5.90) m/uL Neutrophils # (1.3-7.7) k/uL Lymphocytes # 0.9 L (1.0-4.8) k/uL Potassium (3.5-5.1) mmol/L Chloride (98-107) mmol/L BUN (9-20) mg/dL Glucose (74-99) mg/dL Total Bilirubin (0.2-1.3) mg/dL Total Protein (6.3-8.2) g/dL Assessment and Plan (1) Dislocation of ankle, right, closed Current Visit: Yes Status: Acute Code(s): S93.04XA - DISLOCATION OF RIGHT ANKLE JOINT, INITIAL ENCOUNTER SNOMED Code(s): 214686993 (2) Right fibular fracture Current Visit: Yes Status: Acute Code(s): S82.401A - UNSP FRACTURE OF SHAFT OF RIGHT FIBULA, INIT FOR CLOS FX SNOMED Code(s): 56011383
[2018-08-25] MEDS ORDERED: diphenhydrAMINE 50 MG/ML 1 ML VIAL ONE (12:53)
[2018-08-25] MEDS ORDERED: PROPOFOL 10 MG/ML 20 ML VIAL IV ONE (12:53)
[2018-08-25] MEDS ORDERED: fentaNYL (PF) 50 MCG/ML 2 ML AMP ONE (12:53)
[2018-08-25] MEDS ORDERED: MIDAZOLAM 2 MG/2 ML VIAL ONE (12:53)
[2018-08-25] MEDS ORDERED: SODIUM CHLORIDE 0.9% 50 ML with ceFAZolin 3,000 MG IV ONE ×2 (13:05)
[2018-08-25] MEDS ORDERED: hydrOXYzine PAMOATE 25 MG CAP PO PRN (15:10)
[2018-08-25] MEDS ORDERED: HYDROmorphone 0.5 MG/0.5 ML SYRINGE IVP PRN ×3 (15:10)
[2018-08-25] MEDS ORDERED: SENNOSIDES-DOCUSATE SODIUM 1 EACH TAB PO PRN (15:10)
[2018-08-25] MEDS ORDERED: ONDANSETRON 4 MG/2 ML VIAL IVP PRN (15:10)
[2018-08-25] MEDS: HYDROmorphone 1 MG/ML 1 ML SYRINGE IVP ONE ×2 (15:17→15:41)
--- NOTE | 2018-08-25 15:23 | P.OP ---
Date of Procedure: 08/25/18 Preoperative Diagnosis: 1. Right ankle fracture dislocation 2. Morbid obesity with BMI 45.6 3. History of chronic alcohol and drug abuse 4. History of chronic lower extremity edema 5. History of type 2 diabetes currently controlled with diet Postoperative Diagnosis: Same Procedure(s) Performed: 1. Open reduction internal fixation of right lateral malleolus 2. Open reduction and internal fixation of right syndesmosis 3. Open right ankle deltoid ligament repair 4. Manual application of joint stress by physician for radiography, right ankle 5. Application of short leg splint by physician, right ankle Anesthesia: spinal Surgeon: Paresh Medina [employer] Cashier #1: Ken Ramirez Estimated Blood Loss (ml): 25 IV fluids (ml): 1,100 Pathology: none sent Condition: stable Disposition: PACU Indications for Procedure: The patient is a 67-year-old male with multiple medical problems including morbid obesity with BMI 45.6 and chronic alcohol and drug abuse who sustained a fall 1 week ago resulting in an isolated injury to his ankle. The patient did not seek medical attention until yesterday. According to the patient's sister her brother contacted the patient last Friday after his fall and said that he sounded extremely intoxicated. The patient rolled around his house on his hand and feet. Yesterday he states that he had another injury and heard a pop. He was brought to the emergency department where his ankle was found to be grossly dislocated and he had a completely displaced lateral malleolus fracture. Attempt was made by the emergency department to reduce the ankle which was unsuccessful. I met with the patient in the emergency department and performed a closed reduction and splinting. We reassessed his soft tissue envelope this morning and it appeared amenable for surgery. I discussed the potential risks and complications of surgery including but not limited to risk of anesthesia, superficial infection, deep infection, delayed wound healing, superficial wound necrosis, deep wound necrosis, nonunion of the fracture, malunion of the fracture, malreduction of the ankle or syndesmosis, postoperative hardware failure resulting in displacement of the ankle, chronic pain, chronic swelling, DVT, PE need for further surgery, post traumatic arthritis, other medical complications, and possibly loss of life or limb. The patient understands that he is at an increased risk of having a complication due to his weight and substance abuse issues. He understands the importance of following postoperative weightbearing restrictions. He provided his verbal and written consent to go forward with surgery. Operative Findings: The patient's right ankle was found to be grossly unstable with complete disruption of the deltoid ligament of the medial malleolus Description of Procedure: The patient was identified and operative holding and the correct right leg was marked with my initials. I reviewed the consent form with the patient and his family. All their questions were answered. The patient was given a popliteal and saphenous nerve block by anesthesia. He was then brought back to the operating room where spinal anesthetic was administered. The right leg had a tourniquet applied to the proximal aspect of the thigh. All bony prominences were well-padded. He was secured to the table in the sloppy lateral position with a beanbag. A ramp was placed under the right leg to facilitate imaging. The right leg was then prepped and draped in the standard sterile fashion. Prior to starting surgery timeout was performed identifying the correct patient, operative extremity, and procedure. The patient's leg was elevated, exsanguinated with an Esmarch bandage, and the tourniquet was inflated to 250 mmHg. I began by outlining a straight lateral incision to the distal fibula. Skin incision is made with a scalpel. Dissection was carried down carefully to the subcu tissues tissue with tenotomy scissors. The fascia over the peroneal muscles was incised longitudinally and the periosteum over the distal fibula was incised distally exposing the fracture site. The fracture site was carefully debrided. The fracture was reduced and held clamped together with a small [id number] reduction clamp. C-arm fluoroscopy was brought in to verify the reduction. I then placed a nonlocking 2.7 mm lag screw obliquely across the f racture from dorsal lateral to distal medial. A nonlocking 2.7 mm screw was placed under excellent compression across the fracture. A locking precontoured distal fibular plate was then placed against the lateral aspect of the fibula. A nonlocking 3.5 mm screw was placed in the third hole of the plate proximal to the fracture bringing the plate down to bone. I then centered the plate on the fibula and placed a second nonlocking 3.5 mm screw in the most proximal plate hole. Attention was then turned distally. The plate was brought down with a nonlocking 2.7 mm screw and then the cluster of holes was filled with locking 2.7 mm screws. The 2.7 mm screw was then exchanged for a locking screw. Attention was then turned medially. A longitudinal incision was made over the medial malleolus. Dissection was carried down carefully to the subcutaneous tissue with tenotomy scissors. The deltoid ligament complex was completely avulsed off of the medial malleolus. The anterior surface of the medial malleolus was roughened with a ronguer. A 2.0 mm drill bit was used could a pilot highway patrol hole and then a 3.0 mm suture anchor was placed in the medial malleolus. The distal portion of the deltoid ligament was grasped using horizontal mattress stitches. An permit review assistant gently inverted the ankle and the sutures were tied down over the medial malleolus. A manual external rotation stress x-ray was then obtained which showed significant improvement of the stability of the ankle but continued widening of the medial clear space. A large pelvic reduction clamp was placed with 1 lynn over the distal plate and other lynn over the medial malleolus. It was gently tightened and 2 nonlocking 3.5 mm syndesmotic screws were placed through the plate, across the fibula and into the tibia. Final fluoroscopic images were taken including a mortise and lateral view. The talus was centered under the tibial plafond and and the hardware was in acceptable position. A manual external rotation stress x-ray showed no widening of the medial clear space or incisura. I interpreted this as a stable ankle mortise. The wound was then copiously irrigated and closed in layers. I verified that all instrument, sponge, and sharp counts were correct. A sterile dressing consisting of Betadine soaked Adaptic, 4 x 4, and web roll was applied. A well- padded bulky Mcgill splint was placed with the ankle in neutral. The patient was awoken from his sedation, transferred to a gurney, and brought to PACU without the procedure well. Ken Ramirez PA-C was required as a skilled permit review assistant for patient positioning, surgical exposure, reduction of fracture, placement of hardware, closure of incisions, and placement of splint. Plan: The patient is going to be admitted for pain control, IV antibiotics, and discharge planning. He is to remain strictly nonweightbearing on his right leg. Internal medicine has been consulted to assist with perioperative medical management. I anticipate he will need discharge to either rehab or subacute nursing facility.
--- NOTE | 2018-08-25 15:31 | FL ---
Fluoroscopy HISTORY: Ankle fracture 31 seconds fluoroscopy time supplied to the referring clinician. 2 intraoperative C-arm images docum ent the procedure. See dictated report from orthopedic surgery.
--- NOTE | 2018-08-25 15:32 | XR ---
Limited right ankle HISTORY: Fracture 2 intraoperative C-arm images document the procedure.
[2018-08-25] MEDS: LACTATED RINGERS 1,000 ML IV SCH (15:43)
[2018-08-25] MEDS: ceFAZolin 3 GM in SODIUM CHLORIDE 0.9% 100 ML IVPB SCH (17:13)
[2018-08-25 17:15] LABS: Basophils # (A) 0.1 k/uL (0-0.2); Basophils % (A) 1 %; Eosinophils # (A) 0.1 k/uL (0-0.7); Eosinophils % (A) 1 %; HCT 42.4 % (39.0-53.0); HGB 14.2 gm/dL (13.0-17.5); Lymphocytes # (A) 0.5 k/uL (1.0-4.8); Lymphocytes % (A) 5 %; MCH 32.3 pg (25.0-35.0); MCHC 33.5 g/dL (31.0-37.0); MCV 96.3 fL (80.0-100.0); Mean Platelet Volume 6.7; Monocytes # (A) 0.2 k/uL (0-1.0); Monocytes % (A) 2 %; Neutrophils # (A) 10.8 k/uL (1.3-7.7); Neutrophils % (A) 92 %; Platelet Count 251 k/uL (150-450); RBC 4.41 m/uL (4.30-5.90); RDW 14.3 % (11.5-15.5); WBC 11.8 k/uL (3.8-10.6)
[2018-08-25] MEDS: HYDROcodone/APAP 5-325MG 1 EACH TAB PO PRN (18:59)
--- NOTE | 2018-08-25 23:01 | PN ---
PROGRESS NOTE DATE OF SERVICE: 08/25/2018. HISTORY: This 67-year-old gentleman admitted with right ankle fracture underwent ORIF of the right ankle fracture by Dr. Medina. The swelling is much improved. No chest pain. No palpitations. No fever. EXAM: Alert and oriented x3. Pulse is 69, blood pressure 143/87, respirations 18, temperature 97.8, pulse ox 97% on 2 L. HEENT: Conjunctivae normal. Oral mucosa moist. NECK: Supple. No JVD. CARDIOVASCULAR: S1 and S2 muffled. LUNGS: Breath sounds diminished at the bases. No rhonchi, no crackles. ABDOMEN: Soft, obese, nontender. EXTREMITIES: Legs status post surgery. 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 LABS: WBC 11.8. ASSESSMENT: 1. Right ankle fracture status post ORIF. 2. Sleep apnea, on CPAP at 16. 3. Super morbid obesity, BMI of 45.6. 4. Increased WBC. 5. Hypokalemia, mild. 6. Diabetes mellitus type 2. 7. Hypertension. 8. Hyperlipidemia. 9. History of hypothyroidism. 10.Gout. 11.History of DJD. 12.Back problems. 13.History of nicotine dependence. 14.History of EtOH. RECOMMENDATIONS: Continue current monitoring and symptomatic treatment. Otherwise symptomatic treatment will be provided. Continue with CPAP at night as before. Monitor the blood sugars closely. Guarded prognosis. Further recommendations to follow. MMODL / EBENN: [id number] /
[2018-08-26] MEDS: ceFAZolin 3 GM in SODIUM CHLORIDE 0.9% 100 ML IVPB SCH (00:34)
[2018-08-26] MEDS: HYDROcodone/APAP 5-325MG 1 EACH TAB PO PRN ×4 (00:34→18:22)
[2018-08-26] MEDS: LACTATED RINGERS 1,000 ML IV SCH ×3 (02:34→22:53)
[2018-08-26] MEDS: LEVOTHYROXINE 75 MCG TAB PO SCH (06:10)
[2018-08-26 07:42] LABS: Glucose,Whole Blood 115 mg/dL (75-99)
[2018-08-26] MEDS: LOSARTAN-HCTZ 50-12.5 MG 1 EACH TAB PO SCH (10:26)
[2018-08-26] MEDS: INSULIN ASPART (NovoLOG) 100 UNIT/ML VIAL SQ SCH ×4 (10:26→21:09)
[2018-08-26] MEDS: amLODIPine 10 MG TAB PO SCH (10:28)
[2018-08-26] MEDS: METOPROLOL SUCCINATE (ER) 50 MG TAB.ER.24H PO SCH (10:28)
[2018-08-26] MEDS: PRAVASTATIN SODIUM 40 MG TAB PO SCH (10:28)
[2018-08-26] MEDS: HEPARIN SODIUM,PORCINE 5,000 UNIT/ML 1 ML VIAL SQ SCH ×2 (10:29→21:25)
[2018-08-26] MEDS: ALLOPURINOL 300 MG TAB PO SCH (10:29)
[2018-08-26] MEDS: PANTOPRAZOLE 40 MG TABLET PO SCH (10:29)
[2018-08-26] MEDS: SODIUM CHLORIDE 0.9% 1,000 ML IV SCH ×2 (10:30→22:53)
[2018-08-26 11:44] LABS: Glucose,Whole Blood 109 mg/dL (75-99)
[2018-08-26] MEDS: THIAMINE 100 MG TAB PO SCH ×2 (12:29→18:23)
[2018-08-26 17:14] LABS: Glucose,Whole Blood 125 mg/dL (75-99)
--- NOTE | 2018-08-26 18:02 | PN ---
PROGRESS NOTE DATE OF SERVICE: 08/26/2018 This 67-year-old gentleman who was admitted with right ankle fracture and ORIF had significant swelling of the legs but no chest pain or palpitation. No fever. The patient also has a history of sleep apnea. On exam, alert and oriented x3. Pulse is 85, blood pressure 180/96, respirations 16, temperature 98.2, pulse ox 96% on room air. HEENT: Conjunctivae normal. NECK: No jugular venous distention. CARDIOVASCULAR SYSTEM: S1, S2 muffled. RESPIRATORY SYSTEM: Breath sounds diminished at the bases. A few scattered rhonchi. No crackles. ABDOMEN: Soft, obese, non-tender. LEGS: Status post right leg ORIF. NERVOUS SYSTEM: No focal deficit. LABS: WBC 11.8 and glucose 115. ASSESSMENT: 1. Right ankle fracture, status post open reduction internal fixation. 2. Sleep apnea with CPAP at 16. 3. Super morbid obesity with body mass index of 45.6. 4. Increased white count. 5. Hypokalemia, mild. 6. Bilateral leg swelling, improving. 7. Diabetes mellitus, type 2. 8. Hypertension. 9. Hyperlipidemia. 10.History of hypothyroidism. 11.Gait dysfunction. 12.Gout history. 13.History of degenerative joint disease. 14.History of back problems. 15.History of nicotine dependence. 16.History of ethanol. RECOMMENDATIONS AND DISCUSSION: I recommend to continue current medications, continue with the monitoring, symptomatic treatment. Otherwise at this time we will monitor the patient closely, continue the home medications, including allopurinol. Otherwise, we will continue with DVT prophylaxis. I would also recommend PT/OT evaluation, possible ECF rehab. The rest of the medications per Orthopedic Surgery. Further recommendations to follow. MMODL / IJN: [id number] /
--- NOTE | 2018-08-26 19:55 | P.PN ---
Subjective Progress Note Date: 08/26/18 The patient is a 67-year-old male with a BMI of 45.6, history of chronic alcohol drug abuse, type 2 diabetes, sleep apnea, hypertension and hyperlipidemia who lives alone and presented to [facility] ED with a right ankle fracture-dislocation. He fell last Friday injuring his ankle. It was painful at that time, but he didn't seek medical attention. He was initially able to walk, but then had increased pain and he started crawling on his hands and knees developing sores on his feet. He re-injured his ankle today and felt a "pop" and had increased pain. He was brought into the ER. An attempt was made at closed reduction and splinting, but following application of the splint the ankle was still found to be significantly displaced. Orthopaedics was consulted for assistance in the reduction. Patient underwent an open reduction and internal fixation of the right lateral malleolus, right syndesmosis, and right deltoid ligament repair on 08/25/[address] Medina. Today's postoperative day #1. Patient states he overall feels well, his pain is very well-controlled at the moment. He has not yet been up with therapy today. He denies chest pain, shortness of breath, nausea, vomiting, fevers or chills. He has no new complaints this morning. Vital signs stable. Objective - Vital Signs Vital signs: Vital Signs Temp 98.2 F 08/26/18 15:00 Pulse 84 08/26/18 15:00 Resp 16 08/26/18 16:00 BP 180/96 08/26/18 15:00 Pulse Ox 96 08/26/18 15:00 Intake & Output 08/26/18 08/26/18 08/27/18 06:59 18:59 06:59 Intake Total 250 Output Total 600 600 Balance -350 -600 Intake: Intake, IV Titration 100 Amount ceFAZolin 3 gm In Sodium 100 Chloride 0.9% 100 ml @ 200 mls/hr IVPB Q8HR [facility] Rx#:[id number] Oral 150 Output: Urine 600 600 Other: Voiding Method Indwelling Catheter Indwelling Catheter - Exam On examination, the patient is lying in bed in no acute distress. The patient is alert and oriented 3. On inspection of the right lower extremity, there is a bulky Mcgill splint in place. The splint is clean, dry, and intact. The right toes are warm and well perfused, with capillary refill less than 2 seconds. The patient is able to wiggle his left toes without difficulty. Sensation is intact to light touch of the right toes. Neurovascular is intact of the right lower extremity. The left calf is soft and nontender. - Labs CBC & Chem 7: 08/25/18 16:52 08/25/18 06:57 Labs: Abnormal Lab Results - Last 24 Hours (Table) 08/26/18 08/26/18 08/26/18 Range/Units 07:40 11:32 16:57 POC Glucose (mg/dL) 115 H 109 H 125 H (75-99) mg/dL Assessment and Plan Assessment: Right ankle fracture dislocation status-post open reduction and internal fixation of the right lateral malleolus, right syndesmosis, and right deltoid ligament repair on 08/25/18. Plan: - Strict nonweightbearing of the right lower extremity. Ice and elevate the left lower extremity to decrease pain and swelling. - Physical therapy for gait and balance training. - Continue pain management. - Lovenox while he is inpatient for anticoagulation. - 2 doses of postoperative antibiotics complete. - Appreciate medicine consult for medical management. - Anticipate discharge to a rehab facility within the next 24-48 hours.
[2018-08-26 20:31] LABS: Glucose,Whole Blood 125 mg/dL (75-99)
[2018-08-27] MEDS: LACTATED RINGERS 1,000 ML IV SCH ×2 (05:36→21:40)
[2018-08-27] MEDS: HYDROcodone/APAP 5-325MG 1 EACH TAB PO PRN ×3 (05:37→19:58)
[2018-08-27] MEDS: LEVOTHYROXINE 75 MCG TAB PO SCH (05:37)
[2018-08-27 07:25] LABS: Glucose,Whole Blood 93 mg/dL (75-99)
[2018-08-27] MEDS: INSULIN ASPART (NovoLOG) 100 UNIT/ML VIAL SQ SCH ×4 (07:26→21:56)
[2018-08-27] MEDS: amLODIPine 10 MG TAB PO SCH (08:31)
[2018-08-27] MEDS: LOSARTAN-HCTZ 50-12.5 MG 1 EACH TAB PO SCH (08:31)
[2018-08-27] MEDS: METOPROLOL SUCCINATE (ER) 50 MG TAB.ER.24H PO SCH (08:31)
[2018-08-27] MEDS: PRAVASTATIN SODIUM 40 MG TAB PO SCH (08:31)
[2018-08-27] MEDS: ALLOPURINOL 300 MG TAB PO SCH (08:32)
[2018-08-27] MEDS: PANTOPRAZOLE 40 MG TABLET PO SCH (08:32)
[2018-08-27] MEDS: HEPARIN SODIUM,PORCINE 5,000 UNIT/ML 1 ML VIAL SQ SCH ×2 (08:32→20:32)
[2018-08-27] MEDS: THIAMINE 100 MG TAB PO SCH ×2 (11:40→17:25)
[2018-08-27 12:06] LABS: Glucose,Whole Blood 101 mg/dL (75-99)
[2018-08-27] MEDS ORDERED: ceFAZolin IN SWFI 2 GM/20 ML SYRINGE IVP STA (13:04)
--- NOTE | 2018-08-27 13:04 | P.PN ---
Subjective Progress Note Date: 08/27/18 The patient is a 67-year-old male with a BMI of 45.6, history of chronic alcohol drug abuse, type 2 diabetes, sleep apnea, hypertension and hyperlipidemia who lives alone and presented to [facility] ED with a right ankle fracture-dislocation. He fell last Friday injuring his ankle. It was painful at that time, but he didn't seek medical attention. He was initially able to walk, but then had increased pain and he started crawling on his hands and knees developing sores on his feet. He re-injured his ankle today and felt a "pop" and had increased pain. He was brought into the ER. An attempt was made at closed reduction and splinting, but following application of the splint the ankle was still found to be significantly displaced. Orthopaedics was consulted for assistance in the reduction. Patient underwent an open reduction and internal fixation of the right lateral malleolus, right syndesmosis, and right deltoid ligament repair on 08/25/[address] Medina. Today's postoperative day #2. Patient continues to feel well today. He has been up with therapy today. He has been remaining non-weight bearing on the right leg, per patient. Patient states his pain is well-controlled. He denies chest pain, shortness of breath, nausea, vomiting. He has no new complaints today. Vital signs stable. Objective - Vital Signs Vital signs: Vital Signs Temp 98.2 F 08/27/18 07:28 Pulse 73 08/27/18 07:28 Resp 18 08/27/18 07:28 BP 144/73 08/27/18 07:28 Pulse Ox 100 08/27/18 07:28 Intake & Output 08/26/18 08/27/18 08/27/18 18:59 06:59 18:59 Intake Total 1080 Output Total 600 Balance -600 1080 Intake: Oral 1080 Output: Urine 600 Other: Voiding Method Indwelling Catheter Indwelling Catheter # Voids 2 - Exam On examination, the patient is sitting up in the chair in no acute distress. The patient is alert and oriented 3. On inspection of the right lower extremity, there is a bulky Mcgill splint in place. The splint is clean, dry, and intact. The right toes are warm and well perfused, with capillary refill less t díaz 2 seconds. The patient is able to wiggle his left toes without difficulty. Sensation is intact to light touch of the right toes. Neurovascular is intact of the right lower extremity. The left calf is soft and nontender. - Labs CBC & Chem 7: 08/25/18 16:52 08/25/18 06:57 Labs: Abnormal Lab Results - Last 24 Hours (Table) 08/26/18 08/26/18 08/27/18 Range/Units 16:57 20:29 12:04 POC Glucose (mg/dL) 125 H 125 H 101 H (75-99) mg/dL Assessment and Plan Assessment: Right ankle fracture dislocation status-post open reduction and internal fixation of the right lateral malleolus, right syndesmosis, and right deltoid ligament repair on 08/25/18. Plan: - Strict nonweightbearing of the right lower extremity. Ice and elevate the left lower extremity to decrease pain and swelling. - Physical therapy for gait and balance training. - Continue pain management. - Lovenox while he is inpatient for anticoagulation. - 2 doses of postoperative antibiotics complete. - Appreciate internal medicine consult for medical management. - Anticipate discharge to a rehab facility tomorrow, pending medical clearance.
[2018-08-27] MEDS: SODIUM CHLORIDE 0.9% 1,000 ML IV SCH (14:18)
[2018-08-27 16:49] LABS: Glucose,Whole Blood 111 mg/dL (75-99)
[2018-08-27] MEDS: CALCIUM CARB-VIT D 500MG-200UN 1 EACH TAB PO SCH (19:41)
[2018-08-27] MEDS: ceFAZolin IN SWFI 2 GM/20 ML SYRINGE IVP SCH ×2 (19:41→23:32)
[2018-08-27 20:10] LABS: Glucose,Whole Blood 107 mg/dL (75-99)
[2018-08-28] MEDS: LACTATED RINGERS 1,000 ML IV SCH ×2 (01:30→08:44)
[2018-08-28 04:23] VITALS: PULSE 58
[2018-08-28] MEDS: HYDROcodone/APAP 5-325MG 1 EACH TAB PO PRN ×2 (06:05→11:55)
[2018-08-28] MEDS: LEVOTHYROXINE 75 MCG TAB PO SCH (06:06)
[2018-08-28 06:44] LABS: Glucose,Whole Blood 91 mg/dL (75-99)
[2018-08-28 07:55] VITALS: BP 136/84; RESP 17; TEMP 98.4
--- NOTE | 2018-08-28 08:29 | P.DS ---
Providers Date of admission: 08/25/18 09:52 Attending physician: Paresh Medina Consults: 08/24/18 17:45 Consult Physician Urgent Consulting Provider: Roz Rosado Consult Reason/Comments: medical clearance for operation Do you want consulting provider notified?: Yes Primary care physician: [facility] Course: This patient is a 67-year-old male with multiple medical problems including morbid obesity with BMI 45.6 and chronic alcohol and drug abuse who sustained a fall resulting in a right ankle fracture dislocation. The patient fell about a week ago, he did not initially seek medical attention. Patient mother's house is hands and feet for about a week, and states he had another injury when he heard a pop in the same ankle. He was subsequently brought to [facility] emergency department where he think was found to be grossly loose with indicated he had a completely displaced lateral malleolus fracture. Patient ankles well reduced in the ED, and was admitted for further evaluation and treatment. Patient's soft tissues were reevaluated on 08/25/18, and were found to be amenable to undergo surgery. Patient underwent an open reduction and internal fixation of the right ankle on 08/25/[address] Medina. The procedure is performed without complication or sequelae. The patient is doing well postoperatively. Vital signs are stable on postop day #3. The patient is examined bedside this morning. The patient states he is experiencing minimal pain in the right ankle. He rates this pain a 2/10. Patient states he is a physical therapy and yesterday, and is having no issues transferring to the chair. He states the abad catheter has no yet been removed, as he is having issues using a urinal for urination. Patient states he is tolerating his diet well. Patient denies chest pain, shortness of breath, nausea, vomiting. Vital signs stable. On examination, the patient is sitting up in bed in no acute distress. Patient is alert and orientated x3. On inspection of the right lower extremity, there is a bulky Mcgill splint in place. Splint is clean, dry, intact. There is no drainage or bleeding through the splint. Patient is able to wiggle his toes without issue. The toes are warm and well-perfused with brisk capillary refill. Sensation is intact to light touch of the dorsal and plantar foot, as well as first dorsal webspace. The left calf is soft and non-tender to palpation. The patient is discharged to rehab today, pending medical clearance today. Please refer to the [facility] for accurate list of medications. Patient Condition at Discharge: Stable Plan - Discharge Summary Discharge Rx Participant: No New Discharge Prescriptions: New Aspirin 325 mg PO DAILY #14 tab Docusate [Colace] 100 mg PO BID #60 capsule Hydrocodone/Acetaminophen [[place] 5-325] 1 tab PO Q6H PRN #28 tab PRN Reason: Pain No Action Levothyroxine Sodium [Synthroid] 75 mcg PO DAILY Pravastatin Sodium [Pravachol] 40 mg PO DAILY Allopurinol [Zyloprim] 300 mg PO DAILY Metoprolol Succinate (ER) [Toprol Xl] 50 mg PO DAILY amLODIPine [Norvasc] 10 mg PO DAILY Losartan/Hydrochlorothiazide [Losartan-Hctz 100-25 mg Tab] 1 tab PO DAILY amLODIPine [Norvasc] 5 mg PO DAILY Discharge Medication List Levothyroxine Sodium [Synthroid] 75 mcg PO DAILY 09/29/13 [History] Pravastatin Sodium [Pravachol] 40 mg PO DAILY 09/29/13 [History] Allopurinol [Zyloprim] 300 mg PO DAILY 10/04/13 [History] Losartan/Hydrochlorothiazide [Losartan-Hctz 100-25 mg Tab] 1 tab PO DAILY 05/27/17 [History] Metoprolol Succinate (ER) [Toprol Xl] 50 mg PO DAILY 05/27/17 [History] amLODIPine [Norvasc] 10 mg PO DAILY 05/27/17 [History] amLODIPine [Norvasc] 5 mg PO DAILY 08/24/18 [History] Aspirin 325 mg PO DAILY #14 tab 08/28/18 [Rx] Docusate [Colace] 100 mg PO BID #60 capsule 08/28/18 [Rx] Hydrocodone/Acetaminophen [[place] 5-325] 1 tab PO Q6H PRN #28 tab 08/28/18 [Rx] Follow up Appointment(s)/Referral(s): Mikal Box MD [Primary Care Provider] - 1-2 days Paresh Medina MD [Medical Doctor] - 2 Weeks Activity/Diet/Wound Care/Special Instructions: -Strict non-weight bearing on your operative leg. Do not remove your splint; Keep splint clean, dry, and intact -Use crutches, knee scooter, or a walker to ambulate after surgery. -Elevate and ice operative leg to help reduce swelling and control pain. -Take pain medications as prescribed. Take Colace as a stool softener. Take aspirin as prescribed for blood clot prevention. -Follow-up appointment with Dr. Medina in the office in 2 weeks. -Call the office with any questions or concerns, - We discussed the patient's history of drug abuse and his current prescription for [place], an opioid. Patient states he will only take this medication when needed for pain. He voices the risk of taking this medication. He states he will only take this medication for 1-2 weeks longer. He states he will stop taking this medication when no longer needed for pain control. He will then switch to an [id number] pain medication, such as Tylenol. Patient voices agreement with this plan. Discharge Disposition: TRANSFER TO SNF/ECF
[2018-08-28] MEDS: INSULIN ASPART (NovoLOG) 100 UNIT/ML VIAL SQ SCH ×2 (08:38→11:47)
[2018-08-28] MEDS: ceFAZolin IN SWFI 2 GM/20 ML SYRINGE IVP SCH (08:43)
[2018-08-28] MEDS: LOSARTAN-HCTZ 50-12.5 MG 1 EACH TAB PO SCH (08:43)
[2018-08-28] MEDS: amLODIPine 10 MG TAB PO SCH (08:43)
[2018-08-28] MEDS: HEPARIN SODIUM,PORCINE 5,000 UNIT/ML 1 ML VIAL SQ SCH (08:43)
[2018-08-28] MEDS: PRAVASTATIN SODIUM 40 MG TAB PO SCH (08:43)
[2018-08-28] MEDS: THIAMINE 100 MG TAB PO SCH (08:44)
[2018-08-28] MEDS: ALLOPURINOL 300 MG TAB PO SCH (08:44)
[2018-08-28] MEDS: METOPROLOL SUCCINATE (ER) 50 MG TAB.ER.24H PO SCH (08:44)
[2018-08-28] MEDS: CALCIUM CARB-VIT D 500MG-200UN 1 EACH TAB PO SCH (08:44)
[2018-08-28] MEDS: PANTOPRAZOLE 40 MG TABLET PO SCH (08:44)
--- NOTE | 2018-08-28 08:49 | PN ---
PROGRESS NOTE DATE OF SERVICE: 08/27/2018 This 65-year-old gentleman was admitted with right ankle fracture is being closely monitored patient. The patient had swelling earlier but much improved awaiting ECF placement. No chest pain. No palpitation. EXAM: Alert and oriented times three. Pulse 61, blood pressure 110/75, respiration 14, temperature 98.2, pulse ox 98% on room air. HEENT: Conjunctivae normal. NECK: No jugular venous distention. CARDIOVASCULAR: S1, S2 muffled. RESPIRATORY: Breath sounds diminished in the bases. No rhonchi. No crackles. Abdomen is soft, nontender. No mass palpable. Legs are no edema, no swelling. CENTRAL NERVOUS SYSTEM: No focal deficits. LABS: WBC 11.8, hemoglobin 14.2, glucose 125, vitamin D is 26.5. ASSESSMENT: 1. Right ankle fracture, status post open reduction and internal fixation. 2. Sleep apnea, on CPAP 60. 3. Super morbid obesity with body mass index of 45.6, vitamin D deficiency. 4. Increased WBC. 5. Hypokalemia, mild. 6. Right leg swelling, improving. 7. Diabetes mellitus type 2. 8. Hypertension. 9. Hyperlipidemia. 10.History of hypothyroidism. 11.Gait dysfunction. 12.Gout history. 13.History of degenerative joint disease. 14.History of back pain. 15.History of nicotine dependence. 16.History of EtOH. RECOMMENDATIONS AND DISCUSSION: Recommend to continue current medication, continue to monitor. Symptomatic treatment. Otherwise, I would also recommend calcium, vitamin D supplementation. Otherwise, we will stop IV fluids. Otherwise I would also recommend closely follow with surgery. Further recommendations to follow. MMODL / IJN: [id number] /
[2018-08-28 11:25] LABS: Glucose,Whole Blood 90 mg/dL (75-99)
--- NOTE | 2018-08-29 09:47 | PN ---
PROGRESS NOTE DOS 08/28/18 DATE OF SERVICE: This 67-year-old gentleman admitted with right ankle fracture also had ORIF. The patient also had sleep apnea. Patient also had cellulitic lesions. The patient was given a short course of IV Kefzol at this time. PAST MEDICAL HISTORY: Reviewed. REVIEW OF SYSTEMS: CARDIOVASCULAR: S1, S2. Respiratory: As mentioned earlier. GI no nausea. no dysuria. Central nervous system: No numbness, weakness. CURRENT MEDICATIONS ARE: Reviewed and include: 1. Tylenol p.r.n. 2. [place]. 3. Zyloprim. 4. Xanax. 5. Norvasc. 6. Kefzol. 7. Hyzaar. 8. Heparin. 9. Vistaril. 10.Synthroid. 11.Ativan. 12.Morphine. 13.Narcan. 14.Zofran. 15.Protonix. 16.Pravachol. 17.Restoril. PHYSICAL EXAM: Patient is alert, oriented x2. Pulse is 58, blood pressure 130/64, respiration is 17, temperature 98.2, pulse ox 94% on room air. HEENT: Conjunctivae normal. NECK: No jugular venous distention. CARDIOVASCULAR: S1, S2. RESPIRATORY: Breath sounds diminished in the bases. A few scattered rhonchi. ABDOMEN: Soft, obese. LEGS: Status post surgery right leg. CENTRAL NERVOUS SYSTEM: No focal deficits. LABS: Accu-Cheks noted. WBC 11.8. ASSESSMENT: 1. Right ankle fracture status post ORIF. 2. Sleep apnea, on CPAP 16. 3. Super morbid obesity with body mass index of 45.6. 4. Vitamin D deficiency. 5. Increased WBC. 6. Hypocalcemia, mild. 7. Right leg swelling, improving. 8. Left foot cellulitis abrasion. 9. Diabetes mellitus type 2. 10.Hypertension. 11.Hyperlipidemia. 12.History of hypothyroidism. 13.History of gait dysfunction. 14.Gout history. 15.History of degenerative joint disease. 16.History of back pain. 17.History of nicotine dependence. 18.History of EtOH. RECOMMENDATIONS AND DISCUSSION: Recommend to continue current medications, continue with monitoring, and symptomatic treatment. Otherwise, at this time, also recommend continue the antibiotics and subcu heparin. Monitor closely. The patient has some swelling of the left leg. I recommended continued follow up with Orthopedic surgery and the patient is slated to go to [facility] rehab. Medication reconciliation done. Further recommendations to follow. See orders for further details. MMODL / IJN: [id number] / MTDD
== END 2018-08-28 14:54 | DRG 493 ==
LOC: EC 15:13 → 4SSUR 17:33 → OBSVTOIN 08-25 09:52
PROVIDERS: ADMIT Orthopaedic Surgery; ATTEND Orthopaedic Surgery
PROC: 0QSJXZZ Reposition Right Fibula, External Approach (ICD-10-PCS; 2018-08-24)
PROC: 0MQQ0ZZ Repair Right Ankle Bursa and Ligament, Open Approach (ICD-10-PCS; 2018-08-25)
PROC: 5A09357 Assistance with Respiratory Ventilation, Less than 24 Consecutive Hours, Continuous Positive Airway Pressure (ICD-10-PCS; 2018-08-25)
PROC: 0QSJ04Z Reposition Right Fibula with Internal Fixation Device, Open Approach (ICD-10-PCS; principal; 2018-08-25 09:30)
DX: S82.61XA Displaced fracture of lateral malleolus of right fibula, initial encounter for closed fracture (principal); Z68.42 Body mass index [BMI] 45.0-49.9, adult; L03.116 Cellulitis of left lower limb; E83.51 Hypocalcemia; E66.01 Morbid (severe) obesity due to excess calories; E11.9 Type 2 diabetes mellitus without complications; F10.10 Alcohol abuse, uncomplicated; M10.9 Gout, unspecified; I10 Essential (primary) hypertension; G89.29 Other chronic pain; M54.9 Dorsalgia, unspecified; G47.30 Sleep apnea, unspecified; E03.9 Hypothyroidism, unspecified; E87.6 Hypokalemia; S93.421A Sprain of deltoid ligament of right ankle, initial encounter; R26.9 Unspecified abnormalities of gait and mobility; F19.10 Other psychoactive substance abuse, uncomplicated; X50.1XXA Overexertion from prolonged static or awkward postures, initial encounter; W18.30XA Fall on same level, unspecified, initial encounter; E78.5 Hyperlipidemia, unspecified; F17.200 Nicotine dependence, unspecified, uncomplicated; M19.90 Unspecified osteoarthritis, unspecified site; Z79.899 Other long term (current) drug therapy; Z79.890 Hormone replacement therapy; Z98.42 Cataract extraction status, left eye; Z98.41 Cataract extraction status, right eye; Z83.3 Family history of diabetes mellitus; Z82.49 Family history of ischemic heart disease and other diseases of the circulatory system
CPT/HCPCS: 27788; 51702; 71045; 80053; 82306; 83880; 85025; 93005; 96361; 96374; 99285

== ENCOUNTER → 2018-11-20 | Outpatient (CLI) | payer MEDICARE ==
--- NOTE | 2018-11-20 12:48 | US ---
EXAMINATION TYPE: US venous doppler duplex LE BI DATE OF EXAM: 11/20/2018 12:34 PM COMPARISON: NONE CLINICAL HISTORY: 68-year-old male R60.9 EDEMA, M25.571 PAIN IN RT ANKLE. SIDE PERFORMED: Bilateral TECHNIQUE: The lower extremity deep venous system is examined utilizing real time linear array sonog kailey with graded compression, doppler sonography and color-flow sonography. FINDINGS: VESSELS IMAGED: External Iliac Vein (EIV) Common Femoral Vein Deep Femoral Vein Greater Saphenous Vein * Femoral Vein Popliteal Vein Small Saphenous Vein * Proximal Calf Veins (* superficial vessels) Right Leg: Negative for DVT Left Leg: Negative for DVT IMPRESSION: No evidence for DVT within the bilateral lower extremities imaged from the groin to the upper calves.
== END | disposition home or self-care (01) ==
LOC: RADUSWWP 12:08
PROVIDERS: ATTEND Orthopaedic Surgery
DX: S93.04XD Dislocation of right ankle joint, subsequent encounter (principal); S82.61XD Displaced fracture of lateral malleolus of right fibula, subsequent encounter for closed fracture with routine healing; S82.841D Displaced bimalleolar fracture of right lower leg, subsequent encounter for closed fracture with routine healing; L89.509 Pressure ulcer of unspecified ankle, unspecified stage; M17.11 Unilateral primary osteoarthritis, right knee; I80.9 Phlebitis and thrombophlebitis of unspecified site; Z48.89 Encounter for other specified surgical aftercare; Z68.41 Body mass index [BMI] 40.0-44.9, adult
CPT/HCPCS: 93970

== ENCOUNTER → 2021-04-17 | Outpatient (CLI) | payer MEDICARE ==
[~2021-04-17] MED LIST: REGADENOSON 0.4 MG/5 ML SYRINGE IV PRN
--- NOTE | 2021-04-17 10:51 | XR ---
EXAMINATION TYPE: XR chest 2V DATE OF EXAM: 04/17/2021 COMPARISON: Chest x-ray from 06/14/2018 HISTORY: SOB. TECHNIQUE: Frontal and lateral views of the chest are obtained. FINDINGS: There is no suspicious new focal air space opacity, pleural effusion, or pneumothorax seen . The cardiac silhouette size is stable and enlarged. The osseous structures are intact. IMPRESSION: Cardiomegaly without acute pulmonary process. No significant change from prior.
--- NOTE | 2021-04-17 11:05 | NM ---
EXAMINATION TYPE: NM stress lexiscan cardiolite DATE OF EXAM: 04/17/2021 COMPARISON: Nuclear medicine Cardiolite stress test August 03, 2014 HISTORY: History of hypertension and diabetes along with hypercholesteremia and prior tobacco use. Fa grabiel history of heart attack. New Chest pain and shortness of breath. TECHNIQUE: After the intravenous administration of 10.1 mCi Tc 99m Sestamibi - Cardiolite resting SP ECT images acquired 45 minutes post injection. The patient received 0.4mg Lexiscan, 27.5 mCi Tc 99m Sestamibi - Stress images obtained [address] injection FINDINGS: Review of stress and rest SPECT images demonstrates scattered areas of diminished perfusion on stress images versus rest images for example anteroseptal wall with apical level seen best on short axis an d vertical long axis images. There is diminished color intensity involving the anterolateral wall wi th apical level over a shorter segment on short axis and vertical long axis images. Diminished uptake in the inferior wall on both stress and rest images with some decreased uptake are present mid segme nt. Abnormal end diastolic volume at 185 cc. Gated analysis shows satisfactory estimated left ventric ular ejection fraction of 56 %. IMPRESSION: Cannot exclude areas of acute ischemia. Advise direct catheter angiogram follow-up to fur ther evaluate.
--- NOTE | 2021-04-17 13:38 | P.STRESS ---
- Stress Test Note Stress Test Results/Findings: Exam Performed: NM stress lexiscan cardiolite Exam Date: 04/17/21 Reason for Exam: DYSPNEA ON EXERTION Height: 6 ft 3 in Weight: 172.7 kg Protocol: LEXISCAN Stage: NA Duration of Exercise: 5 MINUTES Resting Heart Rate: 63 Resting Blood Pressure: 177/76 Maximum Achieved Heart Rate: 72 Maximum Achieved Blood Pressure: 177/76 85% PMHR: 129 100% PMHR: 152 METS: NA Technologist Comment: Stress Test Results/Findings: At baseline EKG showed normal sinus rhythm, normal axis, no significant ST or T- wave abnormalities. Patient recieved IV infusion of Lexiscan 0.4mg and at peak infusion EKG showed no significant change from baseline. Conclusions: 1. Normal EKG response to Lexiscan infusion 2. Nuclear imaging to be reported separately.
--- NOTE | 2021-04-17 13:55 | ECHOF ---
Referral Reason:R06.00 dyspnea on exertion MEASUREMENTS -------- HEIGHT: 190.5 cm WEIGHT: 172.4 kg BP: RVIDd: 3.6 cm (< 3.3) IVSd: 1.6 cm (0.6 - 1.1) LVIDd: 4.6 cm (3.9 - 5.3) LVPWd: 1.3 cm (0.6 - 1.1) IVSs: 1.9 cm LVIDs: 3.4 cm LVPWs: 2.0 cm LAESV Index (A-L): 20.20 ml/m Ao Diam: 4.0 cm (2.0 - 3.7) AV Cusp: 2.4 cm (1.5 - 2.6) MV EXCURSION: 17.802 mm (> 18.000) MV EF SLOPE: 217 mm/s (70 - 150) EPSS: 1.1 cm MV E Vlad: 1.01 m/s MV DecT: 137 ms MV A Vlad: 1.12 m/s MV E/A Ratio: 0.91 RAP: 5.00 mmHg RVSP: 55.05 mmHg FINDINGS -------- Sinus rhythm. This was a technically difficult study with suboptimal views. The left ventricular size is normal. There is moderate concentric left ventricular hypertrophy. O verall left ventricular systolic function is low-normal with, an EF between 50 - 55 %. The right ventricle is mildly enlarged. Normal LA size by volume 22+/-6 ml/m2. The right atrium was not well visualized. 2.0mg of Lumason was utilized for enhancement of images Interatrial and interventricular septum intact. The aortic valve was not well visualized. There is no evidence of aortic regurgitation. There is no evidence of aortic stenosis. The mitral valve was not well visualized. No mitral regurgitation. Moderate tricuspid regurgitation present. There is moderate pulmonary hypertension. The right jani tricular systolic pressure, as measured by Doppler, is 55.05mmHg. There is no pulmonic regurgitation present. The aortic root size is normal. IVC Not well visulized. There is no pericardial effusion. CONCLUSIONS -------- 1. The left ventricular size is normal. 2. There is moderate concentric left ventricular hypertrophy. 3. Overall left ventricular systolic function is low-normal with, an EF between 50 - 55 %. 4. The right ventricle is mildly enlarged. 5. Moderate tricuspid regurgitation present. 6. There is moderate pulmonary hypertension. 7. The right ventricular systolic pressure, as measured by Doppler, is 55.05mmHg. TRACE EVIDENCE TECHNICIAN: Ynes Soto RDCS
== END | disposition home or self-care (01) ==
LOC: RADNMMAIN 07:17
PROVIDERS: ATTEND Internal Medicine
DX: R06.00 Dyspnea, unspecified (principal)
CPT/HCPCS: 93017; 71046; 78452; C8929; A9500; J2785; Q9950; 93306

== ENCOUNTER → 2021-04-25 | Outpatient (CLI) | payer MEDICARE ==
[2021-04-25 09:43] LABS: Potassium 4.3 mmol/L (3.5-5.1)
[2021-04-25 12:11] LABS: HCT 41.3 % (39.0-53.0); HGB 14.7 gm/dL (13.0-17.5); Hyperchromasia Moderate; MCH 33.4 pg (25.0-35.0); MCHC 35.7 g/dL (31.0-37.0); MCV 93.6 fL (80.0-100.0); Platelet Count 209 k/uL (150-450); Poikilocytosis Slight; RBC 4.41 m/uL (4.30-5.90); RDW 14.5 % (11.5-15.5); WBC 9.2 k/uL (3.8-10.6)
== END | disposition home or self-care (01) ==
LOC: LABPAT 07:52
PROVIDERS: ATTEND Internal Medicine Cardiovascular Disease
DX: Z01.812 Encounter for preprocedural laboratory examination (principal); R93.1 Abnormal findings on diagnostic imaging of heart and coronary circulation
CPT/HCPCS: 80051; 82565; 84520; 85027

== ENCOUNTER 2021-05-01 05:35 | Day surgery (SDC) | payer MEDICARE ==
[2021-04-27 15:34] VITALS: BMI 47.8
[2021-05-01] MEDS ORDERED: ASPIRIN 325 MG TAB PO STA (06:10)
[2021-05-01] MEDS ORDERED: NITROGLYCERIN SL TABS 0.4 MG TAB SUBLINGUAL PRN (06:10)
[2021-05-01] MEDS ORDERED: SODIUM CHLORIDE 0.9% 1,000 ML in EMPTY BAG 1 BAG IV SCH (06:10)
[2021-05-01] MEDS ORDERED: ALPRAZolam 0.5 MG TAB PO PRN (06:10)
[2021-05-01] MEDS ORDERED: ALPRAZolam 0.25 MG TAB PO PRN (06:10)
[2021-05-01] MEDS ORDERED: SODIUM CHLORIDE 0.9% 1,000 ML IV ONE (06:10)
[2021-05-01] MEDS ORDERED: ATORVASTATIN 80 MG TAB PO STA (06:10)
[2021-05-01 06:56] VITALS: TEMP 97.8
[2021-05-01] MEDS ORDERED: HEPARIN SODIUM,PORCINE 10,000 UNIT in SODIUM CHLORIDE 0.9% 1,000 ML IRRIGATION PRN (07:00)
[2021-05-01] MEDS ORDERED: HEPARIN SODIUM,PORCINE 2,500 UNIT in SODIUM CHLORIDE 0.9% 250 ML IRRIGATION PRN (07:00)
[2021-05-01] MEDS ORDERED: MIDAZOLAM 2 MG/2 ML VIAL IV ONE (07:38)
[2021-05-01] MEDS ORDERED: LIDOCAINE 1% INJ 10MG/ML (20 ML MDV) SQ ONE (07:40)
[2021-05-01] MEDS ORDERED: VERAPAMIL SYRINGE (5 MG/10 ML) INTRAARTER ONE (07:41)
[2021-05-01] MEDS ORDERED: IOPAMIDOL-370 125ML BTL INJ ONE (07:56)
[2021-05-01] MEDS ORDERED: RX INFO: IV CONTRAST WAS GIVEN 1 EACH MISC MISCELLANE PRN (08:17)
[2021-05-01] MEDS ORDERED: SODIUM CHLORIDE 0.9% 1,000 ML IV SCH (08:30)
[2021-05-01 09:05] VITALS: RESP 18
--- NOTE | 2021-05-01 10:28 | CC ---
CARDIAC CATHETERIZATION REPORT INDICATION: Abnormal stress test showing ischemia in LAD distribution. PROCEDURE NOTE: After obtaining informed consent, left heart catheterization and coronary angiogram are performed via the right radial artery using size 4 Ira catheters. The patient tolerated the procedure well without any obvious immediate complications. Patient received moderate conscious sedation. Total sedation time was 16 minutes. At the end of the procedure, a TR band was used for hemostasis using standard protocol. 97 percent pulse ox has been documented. The radial artery access was obtained using the modified Seldinger technique and a Glidewire was use to manipulate the catheters into the ascending aorta and catheters were exchanged in the ascending aorta under fluoroscopic guidance. The arteries are calcified as is the aorta. The patient received 5 mg of intravenous verapamil and 5000 units of IV heparin to prevent vasospasm and coagulation. FINDINGS: HEMODYNAMICS: Left ventricular end-diastolic pressure is 18 mm. There is no significant gradient across the aortic valve. LEFT VENTRICULOGRAM: Left ventriculogram is not performed. ANGIOGRAPHIC DATA: LEFT MAIN CORONARY ARTERY: Left main coronary artery is a normal-sized vessel and is free of stenosis. Divides into left anterior descending coronary artery and circumflex coronary artery. LEFT ANTERIOR DESCENDING CORONARY ARTERY: LAD appears calcified and shows mild nonobstructive disease involving proximal and mid LAD. CIRCUMFLEX CORONARY ARTERY: Circumflex coronary artery is a nondominant vessel and is free of significant stenosis. LAD shows a moderate atherosclerotic plaque in its midportion. At its worst, it seems to be a 40-50 percent stenosis. RIGHT CORONARY ARTERY: Right coronary artery is a large dominant vessel and is free of significant stenosis. CONCLUSIONS: Heavily calcified vessel with a moderate area of atherosclerotic plaque in the midportion seems to be a 40-50 percent stenosis. The patient will be managed with optimal medical therapy and consider IVUS of the mid LAD lesion if he develops symptoms in spite of medical therapy. The patient is currently on statins, SAUL inhibitors and beta blockers. I will add nitrates. He has elevated creatinine. His contrast threshold is 126 mL. I have used 60 mL of contrast agent. MMODL / IJN: [id number] /
--- NOTE | 2021-05-01 10:35 | LTR ---
DATE OF SERVICE: 05/01/[address] Angelo: I performed cardiac catheterization on Manuelito Thompson. A detailed catheterization note is enclosed for your records. In brief, the patient was referred to me because of an abnormal stress test and on the cardiac catheterization I performed, he has moderate atherosclerotic plaque in the mid LAD region which we are going to manage with optimal medical therapy at this time. If symptoms persist, we might consider an IVUS of the lesion and if necessary revascularize the vessel. The patient will be treated with optimal medical therapy and risk factor modification in the meantime. Thank you for giving me the privilege of participating in the care of this pleasant gentleman. Sincerely, MARQUIS / EBENN: [id number] /
[2021-05-01 14:29] VITALS: BP 168/72; PULSE 74
== END 2021-05-01 13:15 | disposition home or self-care (01) ==
LOC: CATHCVL 05:35
PROVIDERS: ATTEND Internal Medicine Cardiovascular Disease
DX: I25.10 Atherosclerotic heart disease of native coronary artery without angina pectoris (principal); I25.84 Coronary atherosclerosis due to calcified coronary lesion; I10 Essential (primary) hypertension; E78.2 Mixed hyperlipidemia; Z20.822 Contact with and (suspected) exposure to COVID-19; R94.39 Abnormal result of other cardiovascular function study; E66.01 Morbid (severe) obesity due to excess calories; Z68.42 Body mass index [BMI] 45.0-49.9, adult; Z82.49 Family history of ischemic heart disease and other diseases of the circulatory system; Z87.891 Personal history of nicotine dependence; M19.90 Unspecified osteoarthritis, unspecified site; Z98.49 Cataract extraction status, unspecified eye; Z79.899 Other long term (current) drug therapy
CPT/HCPCS: 93458; 87635; C1894; C1769; J2250; J2001; J1644; Q9967

== ENCOUNTER → 2021-09-04 | Outpatient (CLI) | payer MEDICARE | LOC: CPPFTMAIN 08:09 | PROVIDERS: ATTEND Internal Medicine | DX: R06.00 Dyspnea, unspecified (principal); F17.200 Nicotine dependence, unspecified, uncomplicated | CPT/HCPCS: 94060; 94729 ==

== ENCOUNTER → 2022-05-14 | Outpatient (CLI) | payer MEDICARE | LOC: CPPFTMAIN 08:01 | PROVIDERS: ATTEND Internal Medicine | DX: R06.00 Dyspnea, unspecified (principal); Z87.891 Personal history of nicotine dependence | CPT/HCPCS: 94060; 94726; 94729 ==

== ENCOUNTER 2024-04-19 02:27 | Emergency (ER) | payer MEDICARE ==
--- NOTE | 2024-04-19 03:09 | ED ---
General Adult HPI - General Chief complaint: Weakness Stated complaint: Weakness Time Seen by Provider: 04/19/24 02:33 Source: patient, EMS Mode of arrival: EMS Limitations: no limitations - History of Present Illness Initial comments: Patient is a 73-year-old gentleman past medical history hypertension presenting today for generalized weakness. Patient states that over the last couple of weeks he has slowly gotten weaker and over the last 2 days he is progressed to needing a walker to help him walk. Today he could not get out of bed due to weakness. For last 3 days he has had intermittent loose stools stating that he had 2 black stools and today stools were light brown. He has been taking Aleve twice a day for chronic back and lower extremity pain. Endorses shortness of breath with ambulation, no cough or hemoptysis. Endorses intermittent sharp chest pains but none currently. No fevers states he does always feel cold. Is not on blood thinners. Denies abdominal pain nausea or vomiting. Endorses bilateral lower extremity swelling. - Related Data Home Medications Medication Instructions Recorded Confirmed Levothyroxine Sodium [Synthroid] 75 mcg PO DAILY 09/29/13 05/01/21 allopurinoL [Zyloprim] 300 mg PO DAILY 10/04/13 05/01/21 Metoprolol Succinate (ER) [Toprol 50 mg PO DAILY 05/27/17 05/01/21 XL] amLODIPine [Norvasc] 10 mg PO HS 05/27/17 05/01/21 Atorvastatin [Lipitor] 40 mg PO HS 04/27/21 05/01/21 Baclofen 10 mg PO TID 04/27/21 05/01/21 Bio Flex 2 tab PO DAILY 04/27/21 05/01/21 lisinopriL [Zestril] 10 mg PO DAILY 04/27/21 05/01/21 Previous Rx's Medication Instructions Recorded Tamsulosin [Flomax] 0.4 mg PO DAILY #1 cap 08/28/18 Isosorbide Mononitrate ER [Imdur] 30 mg PO DAILY #90 tab 05/01/21 Nitroglycerin Sl Tabs [Nitrostat] 0.4 mg SUBLINGUAL Q5M PRN #100 tab 05/01/21 Allergies Allergy/AdvReac Type Severity Reaction Status Date / Time No Known Allergies Allergy Verified 04/01/19 15:39 Review of Systems ROS Statement: Those systems with pertinent positive or pertinent negative responses have been documented in the HPI. ROS Other: All systems not noted in ROS Statement are negative. Constitutional: Reports: chills. Denies: fever Respiratory: Reports: dyspnea. Denies: cough, hemoptysis Cardiovascular: Reports: chest pain, dyspnea on exertion, edema Gastrointestinal: Reports: diarrhea, melena. Denies: abdominal pain, nausea, vomiting, hematemesis, hematochezia Musculoskeletal: Reports: back pain Past Medical History Past Medical History: Diabetes Mellitus, Hyperlipidemia, Hypertension, Thyroid Disorder Additional Past Medical History / Comment(s): gout, back problems History of Any Multi-Drug Resistant Organisms: None Reported Past Surgical History: No Surgical Hx Reported Additional Past Surgical History / Comment(s): REMOVAL MEGAN CATARACTS Past Anesthesia/Blood Transfusion Reactions: No Reported Reaction Past Psychological History: No Psychological Hx Reported Past Alcohol Use History: None Reported - Past Family History Mother Family Medical History: Coronary Artery Disease (CAD), Diabetes Mellitus, Hypertension, Rheumatoid Arthritis (RA) Father Family Medical History: Congestive Heart Failure (CHF) Brother(s) Family Medical History: Cancer General Exam - General Exam Comments Initial Comments: PE: CONSTITUTIONAL: no apparent distress, chronically ill-appearing, nontoxic SKIN: Cool, dry, no jaundice, hives, denies pallor, brawny discoloration of the distal bilateral lower extremities EYES: Pupils are equally round, extraocular movements intact without nystagmus, conjunctiva pallor noted non-icteric sclera HENT: Normocephalic, atraumatic, moist mucus membranes, oropharynx clear without exudates NECK: , Full range of motion, normal appearance PULMONARY: [Crackles in the right lung field, left lung field clear to auscultation, no rhonchi, rales, normal excursion no wheezes, no accessory muscle use or stridor CARDIOVASCULAR: Regular rate, rhythm, normal S1 and S2. No appreciated murmurs, rubs or gallops. Strong radial pulses with intact distal perfusion. Bilateral 3+ lower extremity pitting edema GASTROINTESTINAL: Soft, active bowel sounds throughout, non-tender, non- distended, no palpable masses, no rebound or guarding. No hepatosplenomegaly, exam shows no hemorrhoids, gross blood, does show light brown stool Hemoccult positive MUSCULOSKELETAL: Extremities have no gross deformity, mild 1+ left upper extremity edema as well as bilateral 3+ lower extremity edema noted bilaterally, abrasion to right toes, no redness NEUROLOGIC:_a/o x 3, GCS 15, normal mentation and speech. Moves all extremities x 4 without motor or sensory deficit PSYCHIATRIC:_normal mood and affect, thought process is clear and linear Limitations: no limitations Course Vital Signs 04/19/24 04/19/24 04/19/24 02:29 04:33 05:03 Temperature 97.6 F 94.0 F L Pulse Rate 64 64 58 L Respiratory 16 14 16 Rate Blood Pressure 155/63 135/64 143/89 O2 Sat by Pulse 100 97 97 Oximetry 04/19/24 04/19/24 04/19/24 05:17 05:23 05:43 Temperature 94.0 F L 93.6 F L 93.8 F L Pulse Rate 56 L 57 L 58 L Respiratory 16 16 16 Rate Blood Pressure 139/64 135/69 136/62 O2 Sat by Pulse 97 98 96 Oximetry EKG Findings - EKG Comments: EKG Findings:: Sinus rhythm, heart rate 65 bpm, ND interval 140 ms, QRS duration 74 ms, QT/QTc 214/225 ms, normal axis, no ST elevations or depressions, no arrhythmia Medical Decision Making - Medical Decision Making Was pt. sent in by a medical professional or institution ([facility] Alves, [employer], urgent care, hospital, or correction...) When possible be specific @ -No Did you speak to anyone other than the patient for history (EMS, parent, family, police, friend...)? What history was obtained from this source @ -No Did you review nursing and triage notes (agree or disagree)? Why? @ -I reviewed and agree with nursing and triage notes Were old charts reviewed (outside hosp., previous admission, EMS record, old EK G, old radiological studies, urgent care reports/EKG's, correction records)? Report findings Medical records reviewed-last record available for review is any PFT done in April 2022 which showed possible interstitial lung disease Differential Diagnosis (chest pain, altered mental status, abdominal pain women, abdominal pain men, vaginal bleeding, weakness, fever, dyspnea, syncope, headache, dizziness, GI bleed, back pain, seizure, CVA, palpatations, mental health, musculoskeletal)? Differential diagnosis remains broad however top considerations include chronic debility, electrolyte abnormality, ACS, CHF, renal disease or ARF, anemia, infection, this is not an all-inclusive list EKG interpreted by me (3pts min.). @ -As above X-rays interpreted by me (1pt min.). @ -Cardiomegaly, bilateral interstitial opacities concerning for pulmonary edema CT interpreted by me (1pt min.). @ -None done U/S interpreted by me (1pt. min.). @ -None done What testing was considered but not performed or refused? (CT, X-rays, U/S, labs)? Why? @ CT PE study, please see below. CT GI bleed study was also considered however patient did not have signs of acute bleeding (ongoing hematemesis, coffee ground emesis, etc) and again had YASIR, possible ARF and would not meter changes records clerk at this facility so this was not done What meds were considered but not given or refused? Why? @ -None Did you discuss the management of the patient with other professionals (professionals i.e. , PA, AUT[employer]IC LATHE SETTER, lab, RT, psych nurse, social welfare clerk, department mgr, teacher, chief medical officer, continuous pillowcase cutter)? Give summary @ -Discussed with Dr. Reynolds, [facility] , who accepted patient for transfer Was smoking cessation discussed for >3mins.? @ -No Was critical care preformed (if so, how long)? @ yes 35 minutes Were there social determinants of health that impacted care today? How? (Homelessness, low income, unemployed, alcoholism, drug addiction, transportation, low edu. Level, literacy, decrease access to med. care, assisted, re hab)? @ -No Was there de-escalation of care discussed even if they declined (Discuss DNR or withdrawal of care, Hospice)? @ -No What co-morbidities impacted this encounter? (DM, HTN, Smoking, COPD, CAD, Cancer, CVA, ARF, Chemo, Hep., AIDS, mental health diagnosis, sleep apnea, morbid obesity)? @ -HTN, HLD, DM, obesity Was patient admitted / discharged? Hospital course, mention meds given and rou te, prescriptions, significant lab abnormalities, going to OR and other pertinent info. @Transferred to [facility] Patient is a pleasant 73-year-old gentleman presenting today for generalized wea kness. On assessment patient chronically ill-appearing but in no acute distress, nontoxic. Respirations unlabored. Generalized pallor, remainder of physical exam as above. Plan for chest x-ray, comprehensive labs. Pt agreeable with plan. Labs significant for hemoglobin of 6.6, last on 08/09/2022 was 14.8/23 was 14.8, hematocrit 20.9, MCV 101.4, platelets 85, BNP 5600, troponin <0.012, of note D- dimer 1.33 however patient's creatinine is also elevated at 7.53 previously 1.8 on 08/11/2022. GFR 7, previously 37.1. CT PE study will be held due to acute renal failure,V/Q scan will need to be obtained at accepting facility, currently vitally stable and I have a low suspicion for PE, therefor I do not think risk of CT scan outweighs benefit at this point and it is reasonable to hold off on the study at this time. Potassium noted be 5.9, patient has no hyperacute T waves on EKG or other signs of hyperkalemia on EKG, ordered insulin, dextrose and Lasix. Calcium gluconate as well. On my assessment Hemoccult positive. I updated patient to these findings and we discussed plan for transfer to [facility] for possible upper GI bleed and scope. I discussed with patient plan for administration PRBCs discussed risk-benefit of this patient agreeable. I suspect this is secondary to patient's recent persistent Aleve use. Additionally, on bladder scan pt with >300 cc urine in bladder, urinary catheter placed. CXR read as RLL opacity, correlate with pneumonia vs pleural effusion. I suspect more likely pleural effusion 2/2 CHF given associated cardiomegaly, elevated BNP and LE edema. Discussed with Dr. Reynolds, [facility], patient for transfer. Additionally contacted [facility] ED physician to update them to patient's history and notable lab findings thus far. Of note transfer was delayed due to delay in obtaining blood prior to transfer. Additionally 80 mg IV Protonix ordered. Patient transferred to [facility] in stable condition. Undiagnosed new problem with uncertain prognosis? @ -No Drug Therapy requiring intensive monitoring for toxicity (Heparin, Nitro, Insulin, Cardizem)? @ -No Were any procedures done? @ -No Diagnosis/symptom? @ Symptomatic anemia, possible upper GI bleed, YASIR, CHF exacerbation Acute, or Chronic, or Acute on Chronic? @ -acute Uncomplicated (without systemic symptoms) or Complicated (systemic symptoms)? @ complicated Side effects of treatment? @ -No Exacerbation, Progression, or Severe Exacerbation? @ -No Poses a threat to life or bodily function? How? (Chest pain, USA, CA, pneumonia, PE, COPD, DKA, ARF, appy, cholecystitis, CVA, Diverticulitis, Homicidal, Suicidal, threat to staff... and all critical care pts) @ Yes, if the above were left untreated and anemia is 2/2 GI bleed, could progress to exanguination or worsening end organ damage; untreated YASIR/ARF would lead to worsening hyperkalemia and cardiac arrest - Lab Data Result diagrams: 04/19/24 02:45 04/19/24 02:45 Lab Results 04/19/24 04/19/24 04/19/24 Range/Units 02:45 02:45 02:45 WBC 4.6 (3.8-10.6) k/uL RBC 2.06 L (4.30-5.90) m/uL Hgb 6.6 L* (13.0-17.5) gm/dL Hct 20.9 L (39.0-53.0) % MCV 101.4 H (80.0-100.0) fL MCH 32.1 (25.0-35.0) pg MCHC 31.7 (31.0-37.0) g/dL RDW 16.5 H (11.5-15.5) % Plt Count 85 L (150-450) k/uL MPV 8.6 Neutrophils % 69 % Lymphocytes % 16 % Monocytes % 8 % Eosinophils % 5 % Basophils % 1 % Neutrophils # 3.2 (1.3-7.7) k/uL Lymphocytes # 0.7 L (1.0-4.8) k/uL Monocytes # 0.3 (0-1.0) k/uL Eosinophils # 0.3 (0-0.7) k/uL Basophils # 0.0 (0-0.2) k/uL Manual Slide Review Performed Hypochromasia Marked Poikilocytosis Slight Anisocytosis Slight Macrocytosis Slight PT 10.7 (10.0-12.5) sec INR 1.0 (<1.2) APTT 30.0 (22.0-30.0) sec D-Dimer 1.33 H (<0.60) mg/L FEU Sodium 144 (137-145) mmol/L Potassium 5.9 H (3.5-5.1) mmol/L Chloride 122 H (98-107) mmol/L Carbon Dioxide 10 L (22-30) mmol/L Anion Gap 12 mmol/L BUN 76 H (9-20) mg/dL Creatinine 7.53 H* (0.66-1.25) mg/dL Est GFR (CKD-EPI)AfAm 8 (>60 ml/min/1.73 sqM) Est GFR (CKD-EPI)NonAf 7 (>60 ml/min/1.73 sqM) Glucose 74 (74-99) mg/dL Calcium 8.3 L (8.4-10.2) mg/dL Ionized Calcium Yohan 4.8 (4.5-5.3) mg/dL Magnesium 2.0 (1.6-2.3) mg/dL Total Bilirubin 0.8 (0.2-1.3) mg/dL AST 12 L (17-59) U/L ALT 8 (4-49) U/L Alkaline Phosphatase 84 (38-126) U/L Troponin I (0.000-0.034) ng/mL NT-Pro-B Natriuret Pep 5600 pg/mL Total Protein 5.2 L (6.3-8.2) g/dL Albumin 3.0 L (3.5-5.0) g/dL TSH 7.670 H (0.465-4.680) mIU/L Free T4 1.35 (0.78-2.19) ng/dL Urine Color Urine Appearance (Clear) Urine pH (5.0-8.0) Ur Specific [facility] (1.001-1.035) Urine Protein (Negative) Urine Glucose (UA) (Negative) Urine Ketones (Negative) Urine Blood (Negative) Urine Nitrite (Negative) Urine Bilirubin (Negative) Urine Urobilinogen (<2.0) mg/dL Ur Leukocyte Esterase (Negative) Urine RBC (0-5) /hpf Urine WBC (0-5) /hpf Urine Mucus (None) /hpf Stool Occult Blood (Negative) Blood Type Blood Type Confirm Blood Type Recheck Bld Type Recheck Status Antibody Screen Crossmatch Spec Expiration Date 04/19/24 04/19/24 04/19/24 Range/Units 02:45 02:45 02:50 WBC (3.8-10.6) k/uL RBC (4.30-5.90) m/uL Hgb (13.0-17.5) gm/dL Hct (39.0-53.0) % MCV (80.0-100.0) fL MCH (25.0-35.0) pg MCHC (31.0-37.0) g/dL RDW (11.5-15.5) % Plt Count (150-450) k/uL MPV Neutrophils % % Lymphocytes % % Monocytes % % Eosinophils % % Basophils % % Neutrophils # (1.3-7.7) k/uL Lymphocytes # (1.0-4.8) k/uL Monocytes # (0-1.0) k/uL Eosinophils # (0-0.7) k/uL Basophils # (0-0.2) k/uL Manual Slide Review Hypochromasia Poikilocytosis Anisocytosis Macrocytosis PT (10.0-12.5) sec INR (<1.2) APTT (22.0-30.0) sec D-Dimer (<0.60) mg/L FEU Sodium (137-145) mmol/L Potassium (3.5-5.1) mmol/L Chloride (98-107) mmol/L Carbon Dioxide (22-30) mmol/L Anion Gap mmol/L BUN (9-20) mg/dL Creatinine (0.66-1.25) mg/dL Est GFR (CKD-EPI)AfAm (>60 ml/min/1.73 sqM) Est GFR (CKD-EPI)NonAf (>60 ml/min/1.73 sqM) Glucose (74-99) mg/dL Calcium (8.4-10.2) mg/dL Ionized Calcium Yohan (4.5-5.3) mg/dL Magnesium (1.6-2.3) mg/dL Total Bilirubin (0.2-1.3) mg/dL AST (17-59) U/L ALT (4-49) U/L Alkaline Phosphatase (38-126) U/L Troponin I <0.012 (0.000-0.034) ng/mL NT-Pro-B Natriuret Pep pg/mL Total Protein (6.3-8.2) g/dL Albumin (3.5-5.0) g/dL TSH (0.465-4.680) mIU/L Free T4 (0.78-2.19) ng/dL Urine Color Urine Appearance (Clear) Urine pH (5.0-8.0) Ur Specific [facility] (1.001-1.035) Urine Protein (Negative) Urine Glucose (UA) (Negative) Urine Ketones (Negative) Urine Blood (Negative) Urine Nitrite (Negative) Urine Bilirubin (Negative) Urine Urobilinogen (<2.0) mg/dL Ur Leukocyte Esterase (Negative) Urine RBC (0-5) /hpf Urine WBC (0-5) /hpf Urine Mucus (None) /hpf Stool Occult Blood (Negative) Blood Type O Negative Blood Type Confirm O Negative Blood Type Recheck No Previous Record Bld Type Recheck Status CABO Indicated Antibody Screen NEGATIVE Crossmatch See Detail Spec Expiration Date 04/22/2024 - 234404/19/24 04/19/24 Range/Units 03:50 04:57 WBC (3.8-10.6) k/uL RBC (4.30-5.90) m/uL Hgb (13.0-17.5) gm/dL Hct (39.0-53.0) % MCV (80.0-100.0) fL MCH (25.0-35.0) pg MCHC (31.0-37.0) g/dL RDW (11.5-15.5) % Plt Count (150-450) k/uL MPV Neutrophils % % Lymphocytes % % Monocytes % % Eosinophils % % Basophils % % Neutrophils # (1.3-7.7) k/uL Lymphocytes # (1.0-4.8) k/uL Monocytes # (0-1.0) k/uL Eosinophils # (0-0.7) k/uL Basophils # (0-0.2) k/uL Manual Slide Review Hypochromasia Poikilocytosis Anisocytosis Macrocytosis PT (10.0-12.5) sec INR (<1.2) APTT (22.0-30.0) sec D-Dimer (<0.60) mg/L FEU Sodium (137-145) mmol/L Potassium (3.5-5.1) mmol/L Chloride (98-107) mmol/L Carbon Dioxide (22-30) mmol/L Anion Gap mmol/L BUN (9-20) mg/dL Creatinine (0.66-1.25) mg/dL Est GFR (CKD-EPI)AfAm (>60 ml/min/1.73 sqM) Est GFR (CKD-EPI)NonAf (>60 ml/min/1.73 sqM) Glucose (74-99) mg/dL Calcium (8.4-10.2) mg/dL Ionized Calcium Yohan (4.5-5.3) mg/dL Magnesium (1.6-2.3) mg/dL Total Bilirubin (0.2-1.3) mg/dL AST (17-59) U/L ALT (4-49) U/L Alkaline Phosphatase (38-126) U/L Troponin I (0.000-0.034) ng/mL NT-Pro-B Natriuret Pep pg/mL Total Protein (6.3-8.2) g/dL Albumin (3.5-5.0) g/dL TSH (0.465-4.680) mIU/L Free T4 (0.78-2.19) ng/dL Urine Color Colorless Urine Appearance Clear (Clear) Urine pH 5.5 (5.0-8.0) Ur Specific [facility] 1.012 (1.001-1.035) Urine Protein 1+ H (Negative) Urine Glucose (UA) Negative (Negative) Urine Ketones Negative (Negative) Urine Blood Negative (Negative) Urine Nitrite Negative (Negative) Urine Bilirubin Negative (Negative) Urine Urobilinogen <2.0 (<2.0) mg/dL Ur Leukocyte Esterase Negative (Negative) Urine RBC 1 (0-5) /hpf Urine WBC 1 (0-5) /hpf Urine Mucus Rare H (None) /hpf Stool Occult Blood Negative (Negative) Blood Type Blood Type Confirm Blood Type Recheck Bld Type Recheck Status Antibody Screen Crossmatch Spec Expiration Date Disposition Clinical Impression: YASIR (acute kidney injury), Upper GI bleed, CHF exacerbation, Symptomatic anemia, Generalized weakness, Hyperkalemia Disposition: OTHER INSTITUTION NOT DEFINED Referrals: None,Stated [Primary Care Provider] - 1-2 days - Out of Hospital Transfer - Req. Specs Out of Hospital Transfer - Requested Specifics: Other Emergency Center ([facility])
[2024-04-19] MEDS: ACETAMINOPHEN TAB 325 MG TAB PO STA (03:20)
[2024-04-19 03:29] LABS: Ionized Calcium 4.8 mg/dL (4.5-5.3)
[2024-04-19 03:34] LABS: Anisocytosis Slight; Basophils % (A) 1 %; Eosinophils # (A) 0.3 k/uL (0-0.7); Eosinophils % (A) 5 %; HCT 20.9 % (39.0-53.0); HGB 6.6 gm/dL (13.0-17.5); Hypochromasia Marked; Lymphocytes # (A) 0.7 k/uL (1.0-4.8); Lymphocytes % (A) 16 %; MCH 32.1 pg (25.0-35.0); MCHC 31.7 g/dL (31.0-37.0); MCV 101.4 fL (80.0-100.0); Macrocytosis Slight; Mean Platelet Volume 8.6; Monocytes # (A) 0.3 k/uL (0-1.0); Monocytes % (A) 8 %; Neutrophils # (A) 3.2 k/uL (1.3-7.7); Neutrophils % (A) 69 %; Poikilocytosis Slight; RBC 2.06 m/uL (4.30-5.90); RDW 16.5 % (11.5-15.5); WBC 4.6 k/uL (3.8-10.6)
[2024-04-19 03:38] LABS: ALT 8 U/L (4-49); AST 12 U/L (17-59); African American GFR (CKD) 8 (>60 ml/min/1.73 sqM); Alkaline Phosphatase 84 U/L (38-126); Anion Gap 12 mmol/L; Blood Urea Nitrogen 76 mg/dL (9-20); Calcium 8.3 mg/dL (8.4-10.2); Carbon Dioxide 10 mmol/L (22-30); Chloride 122 mmol/L (98-107); Glucose 74 mg/dL (74-99); Non-African American GFR(CKD) 7 (>60 ml/min/1.73 sqM); Potassium 5.9 mmol/L (3.5-5.1); Sodium 144 mmol/L (137-145); Total Bilirubin 0.8 mg/dL (0.2-1.3); Total Protein 5.2 g/dL (6.3-8.2)
[2024-04-19 03:39] LABS: Prothrombin Time 10.7 sec (10.0-12.5)
[2024-04-19 03:40] LABS: Platelet Count 85 k/uL (150-450)
--- NOTE | 2024-04-19 03:42 | XR ---
EXAM: XR Chest, 2 Views CLINICAL HISTORY: ITS.REASON XR Reason: WEAKNESS, shortness of breath, crackles RL TECHNIQUE: Frontal and lateral views of the chest. COMPARISON: No relevant prior studies available. IMPRESSION: Right lower lobe patchy opacity, correlate with pneumonia or effusion
[2024-04-19 03:46] LABS: NT-Pro-B-Type Natriuretic Pept 5600 pg/mL
[2024-04-19] MEDS: PANTOPRAZOLE 40 MG/10 ML VIAL IVP ONE (04:28)
[2024-04-19] MEDS: FUROSEMIDE 10 MG/ML 2 ML VIAL IV ONE (04:30)
[2024-04-19] MEDS: CALCIUM GLUCONATE IN NACL 1 GM in SALINE 1 100ML.BAG IVPB ONE (04:32)
[2024-04-19 04:52] LABS: T4, Free (Free Thyroxine) 1.35 ng/dL (0.78-2.19)
[2024-04-19 05:04] VITALS: RESP 16
[2024-04-19 05:12] LABS: Appearance,Urine Clear (Clear); Bilirubin,Urine Negative (Negative); Blood,Urine Negative (Negative); Color,Urine Colorless; Glucose,Urine (UA) Negative (Negative); Ketones,Urine Negative (Negative); Leukocyte Esterase,Urine Negative (Negative); Mucus,Urine Rare /hpf; Nitrite,Urine Negative (Negative); PH, Urine 5.5 (5.0-8.0); Protein,Urine 1+ (Negative); RBC,Urine 1 /hpf (0-5); Specific Gravity,Urine 1.012 (1.001-1.035); Urobilinogen,Urine <2.0 mg/dL (<2.0); WBC,Urine 1 /hpf (0-5)
[2024-04-19] MEDS: DEXTROSE 50% SYRINGE 50 ML IVP ONE (05:30)
[2024-04-19] MEDS: INSULIN REGULAR 100 UNIT/ML VIAL (IV) IV ONE (05:31)
[2024-04-19 05:44] VITALS: BP 136/62; PULSE 58; TEMP 93.8
== END 2024-04-19 06:01 | disposition other institution (70) ==
LOC: EC 02:27
DX: K92.2 Gastrointestinal hemorrhage, unspecified (principal); D64.9 Anemia, unspecified; E87.5 Hyperkalemia; N17.9 Acute kidney failure, unspecified; I11.0 Hypertensive heart disease with heart failure; I50.9 Heart failure, unspecified; E78.5 Hyperlipidemia, unspecified; E11.9 Type 2 diabetes mellitus without complications; E66.9 Obesity, unspecified; Z68.41 Body mass index [BMI] 40.0-44.9, adult; Z79.899 Other long term (current) drug therapy
CPT/HCPCS: 51798; 36415; 93005; 86900; 86901; 85379; 84439; 83880; 80053; 84443; 82330; 83735; 84484; 85025; 85610; 85730; 86850; 86920; 82272; 81001; 71046; 99291; 36430; 96374; 96375; P9016; J1940; J0613; J2470